=== PATIENT | male | born 1950 | race Caucasian/White ===

== ENCOUNTER 2020-08-16 18:39 | Inpatient (IN) | payer MEDICARE, OTHER ==
[~2020-08-16] VITALS: Ht 182.9 cm; Wt 122.5 kg
--- NOTE | 2020-08-16 19:35 | NUR ---
CALLED NURSING SUP FOR BED
--- NOTE | 2020-08-16 19:35 | NUR ---
[facility]I APA unit 200 from "[facility] for Shoulder pain/more altered than usual. On O2 At 2l/nc on arrival". PT AAOX2, RR EVEN & UNLABORED. DENIES CP, SOB, DIZZINESS, N/V AT THIS TIME. PLACED HAND MOLD MAKER. SR. PT SEEN & EVAL'D BY DR. WHITAKER. WILL CONT TO MONITOR.
--- NOTE | 2020-08-16 19:38 | NUR ---
PT TO CT VIA [facility].
[2020-08-16 19:49] LABS: BASOPHILS % (AUTO) 0.7 % (0.0-2.0); EOSINOPHILS % (AUTO) 4.8 % (0.0-6.0); HEMATOCRIT 34 % (39-51); HEMOGLOBIN 11.6 g/dL (13.5-17.5); LYMPHOCYTES % (AUTO) 30.2 % (20.0-44.0); MEAN CORPUSCULAR HGB CONC 34 g/dl (31.0-36.0); MEAN CORPUSCULAR VOLUME 106 fL (80-96); MONOCYTES # (AUTO) 0.8 /CMM (0.1-1.30); MONOCYTES % (AUTO) 11.9 % (2.0-12.0); NEUTROPHILS # (AUTO) 3.5 /CMM (1.8-8.9); NEUTROPHILS % (AUTO) 52.4 % (43.0-81.0); PLATELET COUNT (AUTO) 103 /CMM (150-450); WHITE BLOOD COUNT (AUTO) 6.6 K/uL (4.3-11.0)
--- NOTE | 2020-08-16 19:50 | NUR ---
PT BACK FROM CT. PT ABLE TO DRINK JUICE WITHOUT DIFFICULTY. NAD NOTED AT THIS TIME. WILL CONT TO MONITOR.
--- NOTE | 2020-08-16 20:04 | NUR ---
TELE 207
[2020-08-16] MEDS ORDERED: ASPI-1169 PO (20:06)
[2020-08-16] MEDS ORDERED: CRAN3875 PO (20:06)
[2020-08-16] MEDS ORDERED: LACT10SO PO (20:06)
[2020-08-16] MEDS ORDERED: LEVO25TA7 PO (20:06)
[2020-08-16] MEDS ORDERED: ACET325C7 PO (20:06)
[2020-08-16] MEDS ORDERED: FERR325T23 PO (20:06)
[2020-08-16] MEDS ORDERED: MEMA1CAP PO (20:06)
[2020-08-16] MEDS ORDERED: CALC-343 PO (20:06)
[2020-08-16] MEDS ORDERED: DONE5TAB7 PO (20:06)
[2020-08-16] MEDS ORDERED: AMIN887L PO (20:06)
[2020-08-16] MEDS ORDERED: PARO10TA86 PO (20:06)
[2020-08-16] MEDS ORDERED: CRAN425C6 PO (20:06)
[2020-08-16] MEDS ORDERED: ACET-2605 PO (20:06)
[2020-08-16] MEDS ORDERED: QUET25TA PO (20:06)
[2020-08-16] MEDS ORDERED: LATA2.5D2 OP (20:06)
[2020-08-16] MEDS ORDERED: METO25TA3 PO (20:06)
[2020-08-16 20:18] LABS: ALANINE AMINOTRANSFERASE 30 U/L (12-78); ALCOHOL, BLOOD < 3 mg/dL (0-0); ALKALINE PHOSPHATASE 205 U/L (46-116); ASPARTATE AMINOTRANSFERASE 43 U/L (15-37); BILIRUBIN,DIRECT 0.3 mg/dL (0.0-0.2); BILIRUBIN,TOTAL 0.8 mg/dL (0.2-1.0); CALCIUM, SERUM 8.1 mg/dL (8.5-10.1); CARBON DIOXIDE 29 mmol/L (21-32); CHLORIDE 109 mmol/L (98-107); CREATININE 1.1 mg/dL (0.6-1.3); GLUCOSE 80 mg/dL (74-106); POTASSIUM 4.8 mmol/L (3.5-5.1); SODIUM SERUM 142 mmol/L (136-145); TOTAL PROTEIN, SERUM 7.6 g/dL (6.4-8.2); UREA NITROGEN, BLOOD 19 mg/dL (7-18)
--- NOTE | 2020-08-16 20:38 | NUR ---
DR. WHITAKER SPEAKING WITH DR. SCHAFFER
--- NOTE | 2020-08-16 20:49 | NUR ---
REPORT GIVEN TO FABIOLA SMITH FOR GWEN.
[2020-08-16 21:01] LABS: SERUM AMMONIA 121 umol/L (11-32)
[2020-08-16 21:05] VITALS: BP 147/70
--- NOTE | 2020-08-16 21:47 | NUR ---
MS2/RN RECEIVED PATIENT FROM E.R. BY WEST AT AROUND 2105. PATIENT WAS AWAKE, ALERT, ORIENTED TO PERSON ONLY, UNABLE TO STATE PLACE AND DATE, HE WAS COMFORTABLE, NO C/O PAIN, NO DISTRESS NOTED, AFEBRILE. UNABLE TO OBTAIN ADMISSION INFORMATIONS PATIENT IS A POOR HISTORIAN, INFORMATIONS WERE OBTAINED FROM E.R. NOTES. MADE PATIENT COMFORTABLE IN BED, TAUGHT THE USE OF CALL LIGHT AND PLACED IT AT BEDSIDE WITHIN REACH, FALL PRECAUTIONS PER PROTOCOL IMPLEMENTED, BED ALARM ACTIVATED FOR SAFETY, SENT MESSAGE TO DR. SCHAFFER FOR ADMISSION ORDERS. WILL MONITOR PATIENT.
[2020-08-16] MEDS ORDERED: Z GUARD REMEDY 2 OZ OINT TP PRN (22:00)
[2020-08-16] MEDS: LATANOPROST EYE DROP 0.005% 2.5 ML BOTTLE OP SCH (22:00)
[2020-08-16] MEDS ORDERED: DONEPEZIL 5 MG TABLET PO SCH (22:00)
[2020-08-16] MEDS ORDERED: ONDANSETRON HCL/PF 4 MG/2 ML VIAL IVP PRN (22:00)
[2020-08-16] MEDS ORDERED: ACETAMINOPHEN 325 MG TABLET PO PRN (22:00)
[2020-08-16] MEDS ORDERED: MAG HYDROX/AL HYDROX/SIMETH 30 ML UDC PO PRN (22:00)
[2020-08-16] MEDS ORDERED: MAGNESIUM HYDROXIDE 30 ML UDC PO PRN (22:00)
[2020-08-17 00:07] VITALS: BP 150/80
--- NOTE | 2020-08-17 02:57 | NUR ---
MS2/RN CALLED [facility], , SPOKE TO FABIOLA [facility]. PER MANOLO, PATIENT RECEIVED FLU VACCINE ON 07/28/2020, NO RECORDS ABOUT PNA VACCINE, PATIENT ABLE TO SWALLOW WHOLE MEDS, ELECTRIC NEEDLE SPECIALIST IS MATILDA CONNOLLY, DAUGHTER, .
--- NOTE | 2020-08-17 03:07 | NUR ---
MS2/RN PATIENT IS SLEEPING AT THIS TIME, APPEAR COMFORTABLE, NO SIGNS OF DISTRESS NOTED, CALL LIGHT IN REACH, WILL CONTINUE TO MONITOR.
[2020-08-17] MEDS: IV D5/0.45 NACL 1,000 ML IV PRN ×2 (04:35→15:49)
--- NOTE | 2020-08-17 04:37 | NUR ---
MS2/RN LATANOPROST EYE DROP NOT ADMINISTERED AT 2200 DUE TO LATE VERIFICATION BY THE PHARMACY/
[2020-08-17 04:49] VITALS: BP 122/62
--- NOTE | 2020-08-17 05:54 | NUR ---
MS2/RN ON ADMISSION, PATIENT REFUSED SKIN ASSESSMENT. PATIENT AGREED TO SKIN ASSESSMENT AT THIS TIME, SKIN INTACT, BLE SKIN DISCOLORATIONS NOTED, PHOTOS TAKEN.
--- NOTE | 2020-08-17 05:56 | NUR ---
MS2/RN PATIENT IS AWAKE, AND ALERT, NO CHANGE IN CONDITION, NO DISTRESS NOTED, CALL LIGHT IN REACH, ALL NEEDS ATTENDED AT THIS TIME, WILL CONTINUE TO MONITOR.
--- NOTE | 2020-08-17 07:20 | NUR ---
SOUR BLEACHING PLEATER OPENING NOTES RECEIVED PATIENT IN BED, ASLEEP. PATIENT IN BREATHING ON ROOM AIR; BREATHING IS EVEN AND UNLABORED; NO SOB NOTED AT THIS TIME. NO S/S OF PAIN SUCH MOANING, FACIAL GRIMACING OR GUARDING. CURRENT MONITOR READING OF SINUS RHYTHM 75 BPM. RAC IV ACCESS G # 18 PRESENT AND INTACT. SAFETY PRECAUTIONS IN PLACE; BED IN LOW POSITION AND LOCKED, RAILS UP X2, CALL LIGHT WITHIN REACH. WILL CONTINUE TO MONITOR PATIENT.
[2020-08-17 08:00] VITALS: BP 140/71
[2020-08-17] MEDS: LEVOTHYROXINE SODIUM 25 MCG TABLET PO SCH (08:35)
[2020-08-17] MEDS: MEMANTINE HCL 5 MG TABLET PO SCH ×2 (08:35→16:04)
[2020-08-17] MEDS: FERROUS SULFATE (325 MG) 325 MG/TAB TABLET PO SCH ×2 (08:35→16:04)
[2020-08-17] MEDS: ASPIRIN 81 MG TAB.CHEW PO SCH (08:35)
[2020-08-17 12:00] VITALS: BP 117/68
--- NOTE | 2020-08-17 14:33 | NUR ---
PRODUCTION LINE MANAGER NOTES DVT PUMPS BROUGHT BY CENTRAL SUPPLY. PATIENT REFUSED TO APPLY THEM ON. WILL TRY LATER.
[2020-08-17] MEDS: LACTULOSE 10 G/15 ML UDC (PYXIS) PO PRN (15:56)
[2020-08-17 15:59] LABS: BASOPHILS % (AUTO) 0.4 % (0.0-2.0); HEMATOCRIT 33 % (39-51); HEMOGLOBIN 11.2 g/dL (13.5-17.5); LYMPHOCYTES # (AUTO) 1.6 /CMM (0.8-4.8); LYMPHOCYTES % (AUTO) 28.3 % (20.0-44.0); MEAN CORPUSCULAR HGB CONC 34 g/dl (31.0-36.0); MEAN CORPUSCULAR VOLUME 105 fL (80-96); MONOCYTES # (AUTO) 0.7 /CMM (0.1-1.30); MONOCYTES % (AUTO) 12.2 % (2.0-12.0); NEUTROPHILS # (AUTO) 3.1 /CMM (1.8-8.9); NEUTROPHILS % (AUTO) 55.1 % (43.0-81.0); PLATELET COUNT (AUTO) 96 /CMM (150-450); RED BLOOD CELL COUNT(AUTO) 3.11 MIL/uL (4.5-6.0); WHITE BLOOD COUNT (AUTO) 5.6 K/uL (4.3-11.0)
[2020-08-17 16:00] VITALS: BP 124/61
[2020-08-17 16:54] LABS: ALBUMIN 1.9 g/dL (3.4-5.0); BILIRUBIN,DIRECT 0.3 mg/dL (0.0-0.2); BILIRUBIN,TOTAL 0.8 mg/dL (0.2-1.0); CALCIUM, SERUM 8.1 mg/dL (8.5-10.1); CREATININE 0.9 mg/dL (0.6-1.3); POTASSIUM 4.4 mmol/L (3.5-5.1); TOTAL PROTEIN, SERUM 7.5 g/dL (6.4-8.2)
[2020-08-17 17:00] LABS: THYROID STIMULATING HORMONE 3.437 uIU/mL (0.358-3.74)
--- NOTE | 2020-08-17 18:42 | NUR ---
TOP FORMER CLOSING NOTES PATIENT REMAINS IN BED, AWAKE, A/O X3. PATIENT IS ON OXYGEN THERAPY VIA NASAL CANULA AT 2LPM; BREATHING IS EVEN AND UNLABORED; NO SOB NOTED DURING THE SHIFT. NO COMPLAINS OF PAIN. CURRENT MONITOR READING OF SINUS RHYTHM. RAC IV ACCESS G # 18 PRESENT AND INTACT. DVT PUMPS ON. ALL NEEDS ATTENDED TO THROUGHOUT THE DAY. SAFETY PRECAUTIONS IN PLACE; BED IN LOW POSITION AND LOCKED, RAILS UP X2, CALL LIGHT WITHIN REACH. WILL ENDORSE TO FEDERAL DISTRICT CLERK NURSE. Addendum: 08/17/20 at 1847 by JOAQUINA CLEMONS RN WRONG PATIENT NOTE
--- NOTE | 2020-08-17 18:47 | NUR ---
INTERVENTIONAL RADIOLOGY TECH CLOSING NOTES PATIENT IN BED, AWAKE, A/O X1. PATIENT IS BREATHING ON ROOM AIR; BREATHING IS EVEN AND UNLABORED; NO SOB NOTED DURING THE SHIFT. NO COMPLAINS OF PAIN. CURRENT MONITOR READING OF SINUS RHYTHM 80 BPM. RAC IV ACCESS G # 18 PRESENT AND INTACT RUNNING D5 1/2 NS AT 75MLS/HR. ALL NEEDS ATTENDED TO THROUGHOUT THE DAY. SAFETY PRECAUTIONS IN PLACE; BED IN LOW POSITION AND LOCKED, RAILS UP X2, CALL LIGHT WITHIN REACH. WILL ENDORSE TO STRAIGHT TOOTH GEAR GENERATOR OPERATOR NURSE.
--- NOTE | 2020-08-17 19:30 | NUR ---
PAINT ROLLER ASSEMBLER NOTE: PATIENT RESTING IN BED, NO ACUTE DISTRESS NOTED. BREATHING EVEN AND UNLABORED, NO SOB NOTED. IV TO RAC IN PLACE, INFUSING D5 1/2 NS AT 75ML/HR. TELE READING SR 78. ISOLATION PRECAUTIONS OBSERVED. BED LOCKED AND IN LOWEST POSITION, CALL LIGHT IN REACH. WILL CONTINUE TO MONITOR.
[2020-08-17 20:00] VITALS: BP 133/79
[2020-08-17 20:22] LABS: EOSINOPHILS % (MANUAL) 3 % (0-4); LYMPHOCYTES % (MANUAL) 24 % (16-48); MONOCYTES % (MANUAL) 3 % (0-11.0); NEUTROPHILS % (MANUAL) 70 (42-76)
[2020-08-17] MEDS: LATANOPROST EYE DROP 0.005% 2.5 ML BOTTLE OP SCH (22:00)
[2020-08-18] VITALS: BP 121/60
--- NOTE | 2020-08-18 03:00 | NUR ---
WOODWORKING CRAFTSMAN NOTE: PATIENT SLEEPING IN BED, NO ACUTE DISTRESS NOTED. BREATHING EVEN AND UNLABORED, NO SOB NOTED. IV TO RAC IN PLACE, INFUSING D5 1/2 NS AT 75ML/HR. ISOLATION PRECAUTIONS OBSERVED. BED LOCKED AND IN LOWEST POSITION, CALL LIGHT IN REACH. WILL CONTINUE TO MONITOR.
[2020-08-18 04:00] VITALS: BP 137/69
--- NOTE | 2020-08-18 06:35 | NUR ---
MACHINE APPLICATOR CEMENTER NOTE: PATIENT RESTING IN BED, NO ACUTE DISTRESS NOTED. BREATHING EVEN AND UNLABORED, NO SOB NOTED. IV TO RAC IN PLACE, INFUSING D5 1/2 NS AT 75ML/HR. ISOLATION PRECAUTIONS OBSERVED. BED LOCKED AND IN LOWEST POSITION, CALL LIGHT IN REACH. WILL ENDORSE TO DAY NURSE TO CONTINUE WITH PLAN OF CARE.
--- NOTE | 2020-08-18 07:15 | NUR ---
Patient is awake, alert and oriented x1. Breathing unlabored and even on room air , no distress noted. IV fluid is runing as ordered. Safety precautions in place, call light within reach.Will continue to monitor
[2020-08-18 08:00] VITALS: BP 149/68
[2020-08-18] MEDS: MEMANTINE HCL 5 MG TABLET PO SCH ×2 (08:10→17:15)
[2020-08-18] MEDS: FOLIC ACID 1 MG TABLET PO SCH (08:10)
[2020-08-18] MEDS: LEVOTHYROXINE SODIUM 25 MCG TABLET PO SCH (08:10)
[2020-08-18] MEDS: MULTIVITAMINS,THERAGRAN 1 UDTAB TABLET PO SCH (08:10)
[2020-08-18] MEDS: ASPIRIN 81 MG TAB.CHEW PO SCH (08:11)
[2020-08-18] MEDS: THIAMINE HCL 100 MG TABLET PO SCH (08:11)
[2020-08-18] MEDS: FERROUS SULFATE (325 MG) 325 MG/TAB TABLET PO SCH ×2 (08:11→17:15)
[2020-08-18 08:22] LABS: CALCIUM, SERUM 7.9 mg/dL (8.5-10.1); CREATININE 0.8 mg/dL (0.6-1.3); POTASSIUM 4.3 mmol/L (3.5-5.1)
[2020-08-18] MEDS: IV D5/0.45 NACL 1,000 ML IV PRN (08:36)
[2020-08-18] MEDS: LACTULOSE 10 G/15 ML UDC (PYXIS) PO PRN ×2 (09:06→17:15)
[2020-08-18 16:00] VITALS: BP 160/85
--- NOTE | 2020-08-18 18:50 | NUR ---
Patient is awake, alert and oriented x1. Breathing unlabored and even on room air , no distress noted at this time. Patient denies pain at this time. Lactulose administrated as ordered Q6hr. IV fluid D/C. IV line intact and patent HL. Safety precautions in place, call light within reach.Will endorse to next shift for GWEN
--- NOTE | 2020-08-18 19:40 | NUR ---
TRACK SUBWAY REPAIR SUPERVISOR OPENING NOTES RECEIVED PATIENT IN BED ALERT AND ORIENTED X 1-2 WITH EPISODES OF CONFUSION. VERBALLY RESPONSIVE AND ABLE TO FOLLOW DIRECTIONS. BREATHING REGULAR AND UNLABORED ON ROOM AIR. RIGHT AC G18 IV LINE INTACT AND PATENT, FLUSHING WELL WITH NO BLEEDING OR S/S OF INFILTRATION NOTED. ON CARDIAC MONITORING WITH NSR AT 65bpm. DENIES SUICIDAL IDEATION OR PAIN/DISCOMFORT AT THIS TIME. BED LOW AND LOCKED ON SEMI FOWLERS POSITION. CALL LIGHT IN REACH. WILL CONTINUE TO MONITOR.
[2020-08-18 20:00] VITALS: BP 150/58
[2020-08-18] MEDS: LATANOPROST EYE DROP 0.005% 2.5 ML BOTTLE OP SCH (21:49)
[2020-08-19] VITALS: BP 125/65
[2020-08-19 04:00] VITALS: BP 119/61
[2020-08-19] MEDS: LACTULOSE 10 G/15 ML UDC (PYXIS) PO PRN ×2 (05:24→16:31)
[2020-08-19] MEDS: LEVOTHYROXINE SODIUM 25 MCG TABLET PO SCH (06:24)
--- NOTE | 2020-08-19 06:50 | NUR ---
BIOMASS PLANT MANAGER CLOSING NOTES PATIENT IN BED ALERT AND ORIENTED X 1-2 WITH EPISODES OF CONFUSION. AFEBRILE WITH NO S/S OF DISTRESS OBSERVED. RIGHT AC G18 IV LINE PATENT AND FLUSHING WELL. MAINTAINED ON CARDIAC MONITORING WITH NSR AT 68bpm. NO COMPLAINTS OF PAIN/DISCOMFORT REPORTED AT THIS TIME. BED LOW AND LOCKED ON SEMI FOWLERS POSITION. CALL LIGHT IN REACH. WILL ENDORSE TO MORNING SHIFT FOR GWEN.
[2020-08-19 06:51] LABS: CALCIUM, SERUM 7.8 mg/dL (8.5-10.1); CREATININE 0.8 mg/dL (0.6-1.3); POTASSIUM 4.2 mmol/L (3.5-5.1)
--- NOTE | 2020-08-19 07:30 | NUR ---
VOLCANOLOGY TEACHER NOTES PT IN BED, ASLEEP, EASY TO AROUSE, ALERT AND VERBALLY RESPONSIVE, DENIES PAIN, RESPIRATIONS NORMAL, CALL LIGHT WITHIN REACH, KEPT WARM AND COMFORTABLE IN BED.
[2020-08-19 08:00] VITALS: BP 116/77
[2020-08-19] MEDS: FERROUS SULFATE (325 MG) 325 MG/TAB TABLET PO SCH ×2 (08:13→16:31)
[2020-08-19] MEDS: FOLIC ACID 1 MG TABLET PO SCH (08:13)
[2020-08-19] MEDS: THIAMINE HCL 100 MG TABLET PO SCH (08:13)
[2020-08-19] MEDS: MEMANTINE HCL 5 MG TABLET PO SCH ×2 (08:13→16:31)
[2020-08-19] MEDS: MULTIVITAMINS,THERAGRAN 1 UDTAB TABLET PO SCH (08:13)
[2020-08-19] MEDS: ASPIRIN 81 MG TAB.CHEW PO SCH (08:14)
--- NOTE | 2020-08-19 13:00 | NUR ---
SUPERVISOR CUSTOMER SERVICES NOTES PT IN BED, AWAKE, ALERT AND VERBALLY RESPONSIVE, NO COMPLAINT AT THIS TIME, SEEN AND EXAMINED BY DR. ROSS, PLAN OF CARE DISCUSSED WITH PT, VERBALIZED UNDERSTANDING, CALL LIGHT WITHIN REACH, KEPT PT COMFORTABLE.
[2020-08-19 16:00] VITALS: BP 145/71
--- NOTE | 2020-08-19 18:14 | NUR ---
MENTAL HEALTH PROFESSIONAL NOTES PT IN BED, RESTING, AWAKE, ALERT AND ORIENTED, NO COMPLAINT OF PAIN OR ANY DISCOMFORT, NOT IN DISTRESS, ASSISTED WITH MEALS, PM MEDS GIVEN, PM CARE PROVIDED, ALL NEEDS ATTENDED.
--- NOTE | 2020-08-19 19:25 | NUR ---
FRAME HAND OPEN NOTES PATIENT IS WATCHING TV IN BED. A/O X2-3. ON RA, NO SOB/ ACUTE RESPIRATORY DISTRESS NOTED. PT DENIES ANY PAIN AT THE MOMENT. IV IN R AC #18G IS PATENT AND INTACT. BED IS IN LOWEST LOCKED POSITION WITH SIDE RAILS UP X3, SEMI FOWLERS. CALL LIGHT IS WITHIN REACH. WILL CONTINUE TO MONITOR.
[2020-08-19 20:23] VITALS: BP 140/83
[2020-08-19] MEDS: LATANOPROST EYE DROP 0.005% 2.5 ML BOTTLE OP SCH (22:11)
[2020-08-20 00:24] VITALS: BP 107/54
[2020-08-20 04:00] VITALS: BP 128/74
[2020-08-20] MEDS: LEVOTHYROXINE SODIUM 25 MCG TABLET PO SCH (06:06)
--- NOTE | 2020-08-20 06:20 | NUR ---
CEMENT MASON CLOSE NOTES PATIENT IS LAYING IN BED, WATCHING TV. A/O X3. ON RA, SATURATING > 95%, NO SOB/ ACUTE RESPIRATORY DISTRESS NOTED. IV IN R AC #18G IS PATENT AND INTACT. PATIENT DENIES ANY PAIN AT THE MOMENT. BED IS IN LOWEST LOCKED POSITION WITH SIDE RAILS UP X3, SEMI FOWLERS. CALL LIGHT IS WITHIN REACH. WILL ENDORSE TO AM NURSE.
--- NOTE | 2020-08-20 07:20 | NUR ---
DEVIN RN NOTES RECEIVED PATIENT IN BED ALERT AND ORIENTED X3, WATCHING TV. HOB ELEVATED. NO SOB. ON ROOM AIR WITH SPO2 OF 100%. ON TELE MONITORING SR. DENIES ANY C/O PAIN NOR DISCOMFORT. BED IN LOWEST POSITION, LOCKED. BED ALARM ON. ABLE TO VERBALIZE NEEDS. CALL LIGHT WITHIN REACH.
--- NOTE | 2020-08-20 07:30 | NUR ---
PARTS MANAGER NOTES RECEIVED PATIENT IN BED ALERT AND ORIENTED X3. HOB ELEVATED. NO S/S OF RESPIRATORY DISTRESS. ON ROOM AIR WITH SPO2 OF 97%. ON TELE MONITORING SR. LEFT UPPER ARM AV SHUNT WITH GOOD BRUIT/THRILL. DENIES ANY C/O PAIN NOR DISCOMFORT. BED IN LOWEST POSITION, LOCKED. BED ALARM ON. ABLE TO VERBALIZE NEEDS. CALL LIGHT WITHIN REACH. Addendum: 08/20/20 at 2021 by NIMCO HERNÁNDEZ RN WRONG DOCUMENTATION.
--- NOTE | 2020-08-20 07:37 | NUR ---
LEAF STRIPPER NOTES RECEIVED N.O. FROM DR. ROSS TO CHANGE LACTULOSE TO FOUR TIMES A DAY
[2020-08-20 08:00] VITALS: BP 136/74
[2020-08-20] MEDS ORDERED: LACTULOSE 10 G/15 ML UDC (PYXIS) PO PRN (08:00)
[2020-08-20] MEDS: THIAMINE HCL 100 MG TABLET PO SCH (08:07)
[2020-08-20] MEDS: FERROUS SULFATE (325 MG) 325 MG/TAB TABLET PO SCH ×2 (08:07→17:00)
[2020-08-20] MEDS: LACTULOSE 10 G/15 ML UDC (PYXIS) PO SCH ×4 (08:07→22:37)
[2020-08-20] MEDS: MEMANTINE HCL 5 MG TABLET PO SCH ×2 (08:07→16:59)
[2020-08-20] MEDS: ASPIRIN 81 MG TAB.CHEW PO SCH (08:07)
[2020-08-20] MEDS: MULTIVITAMINS,THERAGRAN 1 UDTAB TABLET PO SCH (08:07)
[2020-08-20] MEDS: FOLIC ACID 1 MG TABLET PO SCH (08:07)
[2020-08-20 11:00] LABS: CALCIUM, SERUM 8.3 mg/dL (8.5-10.1); CREATININE 0.9 mg/dL (0.6-1.3); POTASSIUM 4.2 mmol/L (3.5-5.1)
[2020-08-20 13:48] VITALS: BP 160/55
[2020-08-20 16:00] VITALS: BP 145/71
--- NOTE | 2020-08-20 19:00 | NUR ---
CORPORATE BANKING OFFICER NOTES PATIENT RESTING COMFORTABLY IN BED. HOB ELEVATED. NO S/S OF RESPIRATORY DISTRESS. DENIES ANY C/O PAIN NOR DISCOMFORT. LOC REMAINS AT BASELINE SINCE THIS MORNING. BED IN LOWEST POSITION, LOCKED. BED ALARM ON. ABLE TO VERBALIZE NEEDS. CALL LIGHT WITHIN REACH. IN NO APPARENT DISTRESS.
[2020-08-20] MEDS: LATANOPROST EYE DROP 0.005% 2.5 ML BOTTLE OP SCH (22:37)
[2020-08-20 22:53] VITALS: BP 130/56
[2020-08-21 04:00] VITALS: BP 131/64
[2020-08-21 04:15] VITALS: BP 131/64
--- NOTE | 2020-08-21 04:16 | NUR ---
SLEPT THRU THE NIGHT. SNORING LOUDLY. LARGE BM THIS 12 HOHURS INCONTINENT US AND STOOL. SCDS ON THRU PART OF THE NIGHT VERBALIZES HIS NEEDS CALL LIGHT WITHIN REACH BED ALARM ON NO C/O PAIN OR DISCOMFORT THIS 12 HOURS
[2020-08-21] MEDS: LEVOTHYROXINE SODIUM 25 MCG TABLET PO SCH (06:20)
--- NOTE | 2020-08-21 07:30 | NUR ---
TELE/RN OPENING NOTES Received patient resting in bed, A&O x 2. No complaints of pain and discomfort at this time. Breathing even and non-labored on RA, no SOB noted. No cardiac distress noted. On tele monitor, reading SB 55. IV access noted on R AC #18, patent and intact, and flushing well. Sensation from all peripheral extremities intact. Bed locked to its lowest position, bed alarm on, side rails x 2 up, call light in hand. Instructed patient to use call light when in need of any assistance. Will continue current medical management.
[2020-08-21 07:31] LABS: CALCIUM, SERUM 8.2 mg/dL (8.5-10.1); CREATININE 0.8 mg/dL (0.6-1.3); POTASSIUM 4.3 mmol/L (3.5-5.1)
[2020-08-21 08:09] VITALS: BP 108/55
[2020-08-21] MEDS: ASPIRIN 81 MG TAB.CHEW PO SCH (08:11)
[2020-08-21] MEDS: LACTULOSE 10 G/15 ML UDC (PYXIS) PO SCH ×4 (08:12→21:56)
[2020-08-21] MEDS: THIAMINE HCL 100 MG TABLET PO SCH (08:12)
[2020-08-21] MEDS: FOLIC ACID 1 MG TABLET PO SCH (08:12)
[2020-08-21] MEDS: MEMANTINE HCL 5 MG TABLET PO SCH ×2 (08:12→16:27)
[2020-08-21] MEDS: MULTIVITAMINS,THERAGRAN 1 UDTAB TABLET PO SCH (08:12)
[2020-08-21] MEDS: FERROUS SULFATE (325 MG) 325 MG/TAB TABLET PO SCH ×2 (08:12→16:28)
[2020-08-21] MEDS: RIFAXIMIN 550 MG TABLET PO SCH ×2 (13:33→16:27)
[2020-08-21 16:05] VITALS: BP 147/62
--- NOTE | 2020-08-21 18:33 | NUR ---
MS/RN CLOSING NOTES Patient resting in bed, A&O x 2. All needs are met and attended to. VSS, afebrile, no SOB noted. Denies any pain/discomfort at this time. Breathing even and non-labored on RA, no SOB noted. No cardiac distress noted. IV access remained patent and intact, and flushing well. Sensation from all peripheral extremities intact. Fall precautions maintained. Will endorse to transit man nurse.
--- NOTE | 2020-08-21 20:32 | NUR ---
MS/TELE/RN DURING INITIAL ASSESSMENT AT 1930, PATIENT WAS AWAKE, ALERT, ORIENTED TO PERSON ONLY, UNABLE TO STATE THE PLACE AND TIME. REORIENTED THE PATIENT. NO DISTRESS NOTED, CALL LIGHT IN REACH, FALL PRECAUTIONS PER PROTOCOL, WILL MONITOR.
[2020-08-21 20:40] VITALS: BP 128/72
[2020-08-21] MEDS: LATANOPROST EYE DROP 0.005% 2.5 ML BOTTLE OP SCH (22:00)
--- NOTE | 2020-08-22 00:20 | NUR ---
MS/TELE/RN PATIENT IS SLEEPING AT THIS TIME, APPEAR COMFORTABLE, BREATHING EVEN AND UNLABORED, CALL LIGHT IN REACH. WILL CONTINUE TO MONITOR.
[2020-08-22] MEDS: LEVOTHYROXINE SODIUM 25 MCG TABLET PO SCH (06:43)
--- NOTE | 2020-08-22 06:51 | NUR ---
MS/TELE/RN PATIENT IS SLEEPING AROUSES EASILY, APPEAR COMFORTABLE, NO DISTRESS NOTED, ALL NEEDS ATTENDED AT THIS TIME, WILL CONTINUE TO MONITOR.
--- NOTE | 2020-08-22 07:30 | NUR ---
MS/RN OPENING NOTES Received patient resting comfortably in bed, A&O x 2. Denies any pain and discomfort at this time. Breathing even and non-labored on RA. No respiratory or cardiac distress noted. IV access noted on R AC #18, patent and intact, and flushing well. Sensation from all peripheral extremities intact. Bed locked to its lowest position, bed alarm on, side rails x 2 up, call light in hand. Instructed patient to use call light when in need of any assistance. Will continue current medical management.
[2020-08-22] MEDS: RIFAXIMIN 550 MG TABLET PO SCH ×2 (08:17→16:06)
[2020-08-22] MEDS: ASPIRIN 81 MG TAB.CHEW PO SCH (08:17)
[2020-08-22] MEDS: LACTULOSE 10 G/15 ML UDC (PYXIS) PO SCH ×4 (08:17→21:31)
[2020-08-22] MEDS: FOLIC ACID 1 MG TABLET PO SCH (08:17)
[2020-08-22] MEDS: MULTIVITAMINS,THERAGRAN 1 UDTAB TABLET PO SCH (08:17)
[2020-08-22] MEDS: FERROUS SULFATE (325 MG) 325 MG/TAB TABLET PO SCH ×2 (08:17→16:06)
[2020-08-22] MEDS: MEMANTINE HCL 5 MG TABLET PO SCH ×2 (08:17→16:06)
[2020-08-22] MEDS: THIAMINE HCL 100 MG TABLET PO SCH (08:18)
[2020-08-22 09:16] VITALS: BP 145/59
--- NOTE | 2020-08-22 12:17 | NUR ---
MS/RN NOTE Dr. Salinas at bedside, notified Ammonia level still at 117, ordered Lactulose 30 G 4x a day. Orders carried out.
[2020-08-22] MEDS ORDERED: LACTULOSE 10 G/15 ML UDC (PYXIS) PO SCH (13:00)
--- NOTE | 2020-08-22 14:23 | NUR ---
MS/RN NOTE [facility], patient had his pneumococcal vaccine on 04/03/2017 and flu vaccine on 08/10/2020. Noted on interventions.
[2020-08-22 16:09] VITALS: BP 137/62
[2020-08-22 19:00] VITALS: BP 147/74
--- NOTE | 2020-08-22 19:18 | NUR ---
MS/RN CLOSING NOTES Patient resting in bed, A&O x 2. All needs are met and attended to. VSS, afebrile. No complaints of any pain/discomfort at this time. Breathing even and non-labored on RA. No respiratory or cardiac distress noted. IV access on R AC #18 remained patent and intact, and flushing well. Sensation from all peripheral extremities intact. Fall precautions maintained. Will endorse to shift superintendent nurse.
--- NOTE | 2020-08-22 19:57 | NUR ---
MS/TELE/RN RECEIVED PATIENT AWAKE, ALERT, ORIENTED, COMFORTABLE, NO C/O PAIN, NO DISTRESS NOTED, FALL PRECAUTIONS PER PROTOCOL, CALL LIGHT IN REACH, WILL MONITOR.
[2020-08-22] MEDS: LATANOPROST EYE DROP 0.005% 2.5 ML BOTTLE OP SCH (21:31)
[2020-08-23 06:23] LABS: BASOPHILS % (AUTO) 0.8 % (0.0-2.0); EOSINOPHILS % (AUTO) 5.9 % (0.0-6.0); HEMATOCRIT 31 % (39-51); HEMOGLOBIN 10.4 g/dL (13.5-17.5); LYMPHOCYTES # (AUTO) 1.5 /CMM (0.8-4.8); LYMPHOCYTES % (AUTO) 26.4 % (20.0-44.0); MEAN CORPUSCULAR HGB CONC 34 g/dl (31.0-36.0); MEAN CORPUSCULAR VOLUME 105 fL (80-96); MONOCYTES # (AUTO) 0.7 /CMM (0.1-1.30); MONOCYTES % (AUTO) 12.1 % (2.0-12.0); NEUTROPHILS # (AUTO) 3.1 /CMM (1.8-8.9); NEUTROPHILS % (AUTO) 54.8 % (43.0-81.0); PLATELET COUNT (AUTO) 86 /CMM (150-450); WHITE BLOOD COUNT (AUTO) 5.7 K/uL (4.3-11.0)
[2020-08-23] MEDS: LEVOTHYROXINE SODIUM 25 MCG TABLET PO SCH (06:27)
--- NOTE | 2020-08-23 06:34 | NUR ---
MS/TELE/RN PATIENT IS AWAKE AT THIS TIME, ALERT, COMFORTABLE, NO C/O PAIN, NO DISTRESS NOTED, SLEPT WELL DURING THE SHIFT, ALL NEEDS ATTENDED AT THIS TIME, WILL CONTINUE TO MONITOR.
[2020-08-23 06:45] LABS: CALCIUM, SERUM 8.3 mg/dL (8.5-10.1); CREATININE 0.9 mg/dL (0.6-1.3); MAGNESIUM 1.7 mg/dL (1.8-2.4); PHOSPHORUS 3.4 mg/dL (2.5-4.9); POTASSIUM 4.2 mmol/L (3.5-5.1)
[2020-08-23] MEDS: ASPIRIN 81 MG TAB.CHEW PO SCH (08:41)
[2020-08-23] MEDS: FOLIC ACID 1 MG TABLET PO SCH (08:43)
[2020-08-23] MEDS: MULTIVITAMINS,THERAGRAN 1 UDTAB TABLET PO SCH (08:43)
[2020-08-23] MEDS: LACTULOSE 10 G/15 ML UDC (PYXIS) PO SCH ×2 (08:43→12:51)
[2020-08-23] MEDS: THIAMINE HCL 100 MG TABLET PO SCH (08:43)
[2020-08-23] MEDS: MEMANTINE HCL 5 MG TABLET PO SCH (08:43)
[2020-08-23] MEDS: FERROUS SULFATE (325 MG) 325 MG/TAB TABLET PO SCH (08:43)
[2020-08-23] MEDS: RIFAXIMIN 550 MG TABLET PO SCH (08:44)
[2020-08-23 08:48] LABS: EOSINOPHILS % (MANUAL) 4 % (0-4); LYMPHOCYTES % (MANUAL) 22 % (16-48); MONOCYTES % (MANUAL) 6 % (0-11.0); NEUTROPHILS % (MANUAL) 68 (42-76)
[2020-08-23] MEDS: Magnesium 1GM/D5W 100ML PREMIX 100 ML IV SCH ×2 (09:32→12:49)
--- NOTE | 2020-08-23 10:11 | NUR ---
19:30 Report received from night nurse. Patient alert, awake, and oriented x 2. Patient with no s/s of distress or discomfort, no SOB, no c/o pain. VS WNL. Patient received due medications as ordered, tolerated well. HOB elevated as tolerated for aspiration precautions. Fall precautions observed. Patient reminded to use call light for assistance. Assisted with ADLs and turning and repositioning as needed and tolerated. Needs anticipated and attended. Call light within reach. Addendum: 08/23/20 at 1532 by JAMAAL AGUIRRE RN (Correction) 07:30 am Opening notes Report received from night nurse. Patient alert, awake, and oriented x 2. Patient with no s/s of distress or discomfort, no SOB, no c/o pain. VS WNL. Patient received due medications as ordered, tolerated well. HOB elevated as tolerated for aspiration precautions. Fall precautions observed. Patient reminded to use call light for assistance. Assisted with ADLs and turning and repositioning as needed and tolerated. Needs anticipated and attended. Call light within reach.
[2020-08-23] MEDS ORDERED: RIFA550T PO (13:10)
[2020-08-23] MEDS ORDERED: Thiamine HCL PO (13:10)
[2020-08-23] MEDS ORDERED: Folic Acid PO (13:10)
[2020-08-23] MEDS ORDERED: MULT-24 PO (13:10)
[2020-08-23] MEDS ORDERED: LACT10SO58 PO (13:10)
--- NOTE | 2020-08-23 15:20 | NUR ---
Received order for discharge back to SNF. Noted and carried out. Patient and family informed of discharge. Discharge instructions, and medications explained to patient. Report was given to the RN supervisor electronics processing at the SNF. Upon complete body assessment, skin intact, with discoloration on BLE noted, no s/s of distress or discomfort, no changes in LOC, no SOB noted, no c/o pain. VS WNL. Assisted with ADLs. Patient kept clean and dry. Good pericare provided. 15:15 Transportation arrived, report given. IV removed, no bleeding, no swelling on site. All personal belongings sent with patient, no missing. Patient left at 15:20 with transportation, patient left in stable condition. VS WNL.
== END 2020-08-23 15:20 | DRG 441 ==
LOC: ER 18:48 → TELE2 20:39 → TELE 08-20 22:20 → MED 08-21 11:06
PROVIDERS: ADMIT Internal Medicine; ATTEND Student in an Organized Health Care Education/Training Program
DX: K72.90 Hepatic failure, unspecified without coma (principal); G93.41 Metabolic encephalopathy; E43 Unspecified severe protein-calorie malnutrition; N17.0 Acute kidney failure with tubular necrosis; D61.818 Other pancytopenia; E87.0 Hyperosmolality and hypernatremia; E72.20 Disorder of urea cycle metabolism, unspecified; Z86.73 Personal history of transient ischemic attack (TIA), and cerebral infarction without residual deficits; I13.10 Hypertensive heart and chronic kidney disease without heart failure, with stage 1 through stage 4 chronic kidney disease, or unspecified chronic kidney disease; N18.9 Chronic kidney disease, unspecified; K74.60 Unspecified cirrhosis of liver; K21.9 Gastro-esophageal reflux disease without esophagitis; F41.9 Anxiety disorder, unspecified; F03.90 Unspecified dementia, unspecified severity, without behavioral disturbance, psychotic disturbance, mood disturbance, and anxiety; F32.9 Major depressive disorder, single episode, unspecified; Z79.82 Long term (current) use of aspirin; Z79.890 Hormone replacement therapy; Z79.899 Other long term (current) drug therapy; F20.9 Schizophrenia, unspecified; E16.2 Hypoglycemia, unspecified; D53.9 Nutritional anemia, unspecified; E03.9 Hypothyroidism, unspecified; E86.1 Hypovolemia
CPT/HCPCS: 36415; 70450-TC; 71045-TC; 80048-TC; 80076-TC; 82140-TC; 82962-TC; 83735-TC; 84100-TC; 84439-TC; 84443-TC; 85025-TC; 87081-TC; 93307-TC; 97110-TC; 97112-TC; 97530-TC; G0378; G0480; J3475; J3490; J7040; U0003-CS

== ENCOUNTER 2021-02-21 19:14 | Inpatient (IN) | payer MEDICARE, OTHER ==
[~2021-02-21] VITALS: Ht 182.9 cm; Wt 117.5 kg
[~2021-02-21 19:14] MED LIST: ACET-2605 PO; ACET325C7 PO; AMIN887L PO; ASPI-1169 PO; CALC-343 PO; CRAN3875 PO; CRAN425C6 PO; DONE5TAB7 PO; FERR325T23 PO; Folic Acid PO; LACT10SO3 PO; LACT10SO58 PO; LATA2.5D2 OP; LEVO25TA7 PO; MEMA1CAP PO; METO25TA3 PO; MULT-24 PO; PARO10TA86 PO; QUET25TA PO; RIFA550T PO; Thiamine HCL PO
--- NOTE | 2021-02-21 19:25 | NUR ---
BIBPA FROM [facility] C/O MORE ALTERED THAN USUAL, POOR INTAKE, AND GENERALIZED WEAKNESS. PER EMT, PT'S BASELINE AAOX1 AND RESPONSIVE TO QUESTIONS. PT AAOX0 AND RESPONSIVE TO PAINFUL STIMULI ON ARRIVAL. VITAL SIGNS STABLE. RESPIRATIONS EVEN AND UNLABORED. NO ACUTE DISTRESS NOTED AT THIS TIME. PLACED IN GOWN AND ON CONTINUOUS COMPANY ACCOUNTANT AND PULSE OX, WILL CONTINUE TO MONITOR
--- NOTE | 2021-02-21 19:40 | NUR ---
IV INITATIED RAC 18G. LABS DRAWN FROM SITE. COSMETICS PRESSER AT BEDSIDE FOR COLLECTION. IV INTACT AND PATENT, PLACED ON SALINE LOCK
[2021-02-21] MEDS ORDERED: MEMA10TA56 PO (19:41)
[2021-02-21] MEDS ORDERED: ASCO-352 PO (19:41)
[2021-02-21] MEDS ORDERED: CALC-167 PO (19:41)
[2021-02-21] MEDS ORDERED: METO25TA6 PO (19:41)
--- NOTE | 2021-02-21 19:42 | NUR ---
DR. QUINTANILLA AT BEDSIDE FOR EVAL
--- NOTE | 2021-02-21 19:47 | NUR ---
URINE COLLECTED AND SENT TO LAB
[2021-02-21 20:00] LABS: BASOPHILS # (AUTO) 0.1 /CMM (0.0-0.2); EOSINOPHILS % (AUTO) 4.2 % (0.0-6.0); HEMATOCRIT 29 % (39-51); HEMOGLOBIN 9.8 g/dL (13.5-17.5); LYMPHOCYTES # (AUTO) 2.2 /CMM (0.8-4.8); MEAN CORPUSCULAR HGB CONC 34 g/dl (31.0-36.0); MEAN CORPUSCULAR VOLUME 106 fL (80-96); MONOCYTES # (AUTO) 0.9 /CMM (0.1-1.30); MONOCYTES % (AUTO) 14.3 % (2.0-12.0); NEUTROPHILS % (AUTO) 46.5 % (43.0-81.0); PLATELET COUNT (AUTO) 97 /CMM (150-450); RED BLOOD CELL COUNT(AUTO) 2.71 MIL/uL (4.5-6.0); WHITE BLOOD COUNT (AUTO) 6.4 K/uL (4.3-11.0)
[2021-02-21] MEDS ORDERED: IV NS 0.9% 1,000 ML BAG IV ONE (20:00)
--- NOTE | 2021-02-21 20:05 | NUR ---
COVID SWAB COLLECTED, CALLED LAB FOR MATERIALS TECHNICIAN
[2021-02-21 20:13] LABS: CALCIUM, SERUM 7.9 mg/dL (8.5-10.1); CREATININE 1.3 mg/dL (0.6-1.3); POTASSIUM 4.6 mmol/L (3.5-5.1)
--- NOTE | 2021-02-21 20:15 | NUR ---
PT BROUGHT BY RADIOLOGY TO CT AND [facility]IA [facility]
[2021-02-21 20:18] LABS: BILIRUBIN,URINE Negative (NEGATIVE); COLOR,URINE DARK YELLOW (YELLOW); LEUKOCYTE ESTERASE ,URINE Negative (NEGATIVE); NITRITE, URINE Negative (NEGATIVE); PROTEIN,URINE Negative (NEGATIVE); UGLUCOSE Negative (NEGATIVE); UROBILINOGEN,URINE >=8.0 EU/dL (0.2)
[2021-02-21 20:19] LABS: ALBUMIN 1.9 g/dL (3.4-5.0); BILIRUBIN,DIRECT 0.4 mg/dL (0.0-0.2); BILIRUBIN,TOTAL 1.3 mg/dL (0.2-1.0); TOTAL PROTEIN, SERUM 7.2 g/dL (6.4-8.2)
--- NOTE | 2021-02-21 20:25 | NUR ---
PT RETURNED FROM CT
--- NOTE | 2021-02-21 20:49 | NUR ---
CALL FROM LAB. RAPID COVID NEGATIVE.
[2021-02-21] MEDS ORDERED: ASPIRIN 325 MG TABLET PO ONE (21:00)
[2021-02-21] MEDS ORDERED: ENOXAPARIN SODIUM 80 MG/0.8 ML DISP.SYRIN SQ ONE ×2 (21:00→21:33)
--- NOTE | 2021-02-21 21:01 | NUR ---
CAMRON 106
[2021-02-21] MEDS ORDERED: MAGNESIUM HYDROXIDE 30 ML UDC PO PRN (21:30)
[2021-02-21] MEDS ORDERED: MAG HYDROX/AL HYDROX/SIMETH 30 ML UDC PO PRN (21:30)
[2021-02-21] MEDS ORDERED: ONDANSETRON HCL/PF 4 MG/2 ML VIAL IVP PRN (21:30)
[2021-02-21] MEDS ORDERED: ACETAMINOPHEN 325 MG TABLET PO PRN (21:30)
[2021-02-21] MEDS ORDERED: MORPHINE SULFATE INJ 2 MG/ML DISP.SYRIN IV PRN (21:30)
[2021-02-21] MEDS ORDERED: Z GUARD REMEDY 2 OZ OINT TP PRN (21:30)
[2021-02-21] MEDS ORDERED: IV NS 0.9% 1,000 ML IV ONE (21:30)
[2021-02-21] MEDS ORDERED: HYDROCODONE/APAP 5/325MG TABLET PO PRN (21:30)
[2021-02-21] MEDS ORDERED: NITROGLYCERIN 0.4 MG/TAB BOTTLE SL PRN (21:30)
[2021-02-21] MEDS ORDERED: ASPIRIN 300 MG/SUPP.RECT RC ONE ×2 (21:33→22:00)
[2021-02-21] MEDS ORDERED: ENOXAPARIN SODIUM 40 MG/0.4 ML DISP.SYRIN SQ ONE (21:33)
[2021-02-21] MEDS ORDERED: DONEPEZIL 5 MG TABLET PO SCH (22:00)
[2021-02-21] MEDS ORDERED: LATANOPROST EYE DROP 0.005% 2.5 ML BOTTLE OP SCH (22:00)
--- NOTE | 2021-02-21 22:09 | NUR ---
REPORT GIVEN TO FABIOLA WILKERSON FOR GWEN
--- NOTE | 2021-02-21 22:18 | NUR ---
PT TRANSFERRED PER ACLS PROTOCOL
--- NOTE | 2021-02-21 22:30 | NUR ---
ADMITTING NOTE REC'D PT IN BED FROM ER VIA GURNEY. PT IS A/O X0, WITHDRAWS FROM PAIN. PT ON ROOM AIR AT THIS TIME, NO S/S OF RESP DISTRESS OR SOB NOTED. BREATHING IS EVEN AND UNLABORED. PT ON TELE MONITORING PRESENTS WITH SINUS AMILCAR, WITH HEART RATE OF 51 BASELINE TO PT. RIGHT AC IV SITE FLUSHED, PT BED BATH DONE, CHANGED INTO GOWN. UPON SKIN ASSESSMENT, PT NOTED TO HAVE MULTIPLE BRUISING AND DISCOLORATION ON UPPER BODY. REDNESS NOTED IN PERINEAL/THIGH FOLDS. SKIN TEAR ON SCROTUM/PENIS. WOUND CONSULT ORDERED. SAFETY MEASURES IN PLACE, APPLICABLE ISOLATION PRECAUTION IN PLACE PENDING PCR COVID RESULT. PT HOB ELEVATED. SIDE RAILS UP X2, BED LOCKED IN LOWEST POSITION. WITH BED ALARM ON. PT UNABLE TO USE CALL LIGHT DUE TO ALTERED MENTAL STATUS, WILL CONT TO MONITOR FREQUENTLY THROUGHOUT SHIFT.
[2021-02-21 22:44] VITALS: BP 145/54
[2021-02-22] VITALS: BP 114/40
--- NOTE | 2021-02-22 00:02 | NUR ---
RN NOTE UNABLE TO ADMINISTER EYE DROPS D/T NONE AVAILABLE ON UNIT FOR NEW ADMIT. UNABLE TO ADMINISTER PO MEDS DUE TO PT AMS. UNABLE TO FOLLOW COMMANDS STAY AWAKE TO SAFELY TAKE MEDICATION. NOTIFIED GASOLINE PUMP MECHANIC CAMMIE.
--- NOTE | 2021-02-22 02:30 | NUR ---
RN NOTE ORDERS FROM JOSSUE BONDS TO KEEP PT NPO, PENDING SWALLOW EVAL TOMORROW. ORDERS CARRIED OUT.
--- NOTE | 2021-02-22 02:46 | NUR ---
RN NOTE TROPONIN RESULT OF 1.688, TRENDING DOWN. RELAYED INFORMATION NOTIFIED DIAMOND DIE MAKER ATILIOTIAK. WILL CONT TO MONITOR. CALL RESULT FROM CARLOS FROM LAB
[2021-02-22] MEDS ORDERED: LACTULOSE 10 G/15 ML UDC (PYXIS) PO SCH (03:30)
[2021-02-22 04:00] VITALS: BP 125/43
--- NOTE | 2021-02-22 05:10 | NUR ---
RN NOTE PT HAD 1 BM, SOFT FORMED. BROWN. WNL. MARIA LUISA CARE DONE, LINENS CHANGED.
[2021-02-22 05:58] LABS: BASOPHILS % (AUTO) 0.8 % (0.0-2.0); EOSINOPHILS % (AUTO) 6.3 % (0.0-6.0); HEMATOCRIT 27 % (39-51); HEMOGLOBIN 9.1 g/dL (13.5-17.5); LYMPHOCYTES # (AUTO) 1.9 /CMM (0.8-4.8); LYMPHOCYTES % (AUTO) 31.4 % (20.0-44.0); MEAN CORPUSCULAR HGB CONC 34 g/dl (31.0-36.0); MEAN CORPUSCULAR VOLUME 107 fL (80-96); MONOCYTES % (AUTO) 16.8 % (2.0-12.0); NEUTROPHILS # (AUTO) 2.8 /CMM (1.8-8.9); NEUTROPHILS % (AUTO) 44.7 % (43.0-81.0); PLATELET COUNT (AUTO) 79 /CMM (150-450); RED BLOOD CELL COUNT(AUTO) 2.52 MIL/uL (4.5-6.0); WHITE BLOOD COUNT (AUTO) 6.2 K/uL (4.3-11.0)
[2021-02-22 06:20] LABS: THYROID STIMULATING HORMONE 2.03 uIU/mL (0.358-3.74)
[2021-02-22 06:32] LABS: ALBUMIN 1.6 g/dL (3.4-5.0); BILIRUBIN,TOTAL 1.5 mg/dL (0.2-1.0); CALCIUM, SERUM 7.5 mg/dL (8.5-10.1); PHOSPHORUS 3.7 mg/dL (2.5-4.9); POTASSIUM 4.8 mmol/L (3.5-5.1); TOTAL PROTEIN, SERUM 6.5 g/dL (6.4-8.2)
--- NOTE | 2021-02-22 06:48 | NUR ---
RN CLOSING NOTE PT IS RESTING IN BED, NO SIGNIFICANT CHANGES OVER NIGHT. ON 2L OF O2 VIA NASAL CANNULA. NO RESP DISTRESS OR SOB NOTED. BREATHING EVEN AND UNLABORED. PT SINUS AMILCAR HEART RATE 49 AT THIS TIME. PT IS KEPT NPO AT THIS TIME. NO S/S OF PAIN NOTED. PT SAFETY MEASURES IN PLACE HOB ELEVATED/ SIDE RAILS UP X2 BED LOCKED IN LOWEST POSITION WITH BED ALARM ON. WILL ENDORSE TO AM SHIFT FOR CONTINUATION OF CARE.
--- NOTE | 2021-02-22 07:56 | NUR ---
REPORT RECEIVED FROM INGA HICKS. PER REPORT PT IS UNRESPONSIVE. UPON EVALUATION PT IS MINIMALLY RESPONSIVE, OPENS EYES, DOES NOT FOLLOW COMMANDS, DOES NOT APPEAR TO BE ABLE TO SWALLOW PILLS OR FOOD. NG TUBE TO BE INSERTED FOR MEDS. PER POLST FROM [facility] PT SHOULD HAVE NO CPR, DO NOT INTUBATED, SW CONSULT FOR EVALUATION OF POLST. PT IS CURRENTLY A FULL CODE. PT CHECKED ON HOURLY AND PRN BY NURSING STAFF. Addendum: 02/22/21 at 1451 by VEL GILLETTE RN PT'S ADVANCED DIRECTIVE SAYS CPR OK, DO NOT INTUBATE.
[2021-02-22 08:00] VITALS: BP 124/51
[2021-02-22] MEDS ORDERED: FERROUS SULFATE (325 MG) 325 MG/TAB TABLET PO SCH (08:00)
--- NOTE | 2021-02-22 08:17 | NUR ---
WOUND CARE CONSULT: PT PRESENTS WITH REDNESS WITH OPEN SKIN TO PENIS, REDNESS TO SCROTUM, PERINEUM AND DRY ABRASIONS/SCRATCHES TO LOWER LEGS, PRESENT ON ADMISSION. RECOMMENDATIONS MADE FOR SKIN PROTECTION. DISCUSSED WITH NURSING STAFF. FIRST STEP LOW AIR LOSS MATTRESS IS ON ORDER. PT IS IMMOBILE. MD IN AGREEMENT WITH PLAN OF CARE.
[2021-02-22] MEDS ORDERED: Medication Not On Formulary EA (Cran/Vitc/Mannose/Inulin/Brom (Uti-Stat Liquid) 30 ML) PO SCH (09:00)
[2021-02-22] MEDS ORDERED: PAROXETINE HCL 10 MG TABLET PO SCH (09:00)
[2021-02-22] MEDS: METOPROLOL TARTRATE 25 MG TABLET PO SCH (09:00)
[2021-02-22] MEDS: ENOXAPARIN SODIUM 40 MG/0.4 ML DISP.SYRIN SQ SCH (09:00)
[2021-02-22] MEDS: CLOTRIMAZOLE 1% 15 GM TUBE TP SCH ×2 (09:00→17:13)
[2021-02-22] MEDS ORDERED: MEMANTINE HCL 5 MG TABLET PO SCH (09:00)
[2021-02-22] MEDS: PROSOURCE / PROSTAT (PYXIS) 30 ML UDC PO SCH (09:00)
[2021-02-22] MEDS ORDERED: QUETIAPINE FUMARATE 25 MG TABLET PO SCH (09:00)
[2021-02-22 09:09] LABS: ABG BASE EXCESS -1.7 mmol/L; ABG OXYGEN SATURATION 98.5 % (92.0-98.5); ABG PCO2 38.9 mmHg (35.0-45.0); ABG PH 7.391 (7.350-7.450); ABG PO2 139.7 mmHg (75.0-100.0); COHb 0.1 % (0.5-1.5); MetHb 0.1 % (0.0-1.5); O2Hb 98.3 % (94.0-97.0); SITE, ABG Right Radial
[2021-02-22 09:30] LABS: BAND % (MANUAL) 2 % (0.0-5.0); EOSINOPHILS % (MANUAL) 2 % (0-4); LYMPHOCYTES % (MANUAL) 25 % (16-48); MONOCYTES % (MANUAL) 13 % (0-11.0); NEUTROPHILS % (MANUAL) 58 (42-76)
--- NOTE | 2021-02-22 09:30 | NUR ---
PER PT'S DAUGHTER PT HAD BELLS PALSY APPROXIMATELY 15 YEARS AGO WITH LEFT SIDED FACIAL DROOP A PERMANENT SIDE EFFECT. PER DAUGHTER PT HAS NEVER HAD A STROKE. 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 DR. JOHNSON AND DR. RAMAN NOTIFIED.
--- NOTE | 2021-02-22 10:25 | NUR ---
ALDRIDGE CATHETER INSERTED PER MD ORDERS WITHOUT DIFFICULTY, >500 ML CLEAR YELLOW URINE RETURNED. URINE SAMPLE SENT TO LAB. 16 TURKISH NG TUBE INSERTED AT THIS TIME IN RIGHT NARES WITHOUT DIFFICULTY PER MD ORDERS. PLACEMENT CHECKED PER PROTOCOL.
[2021-02-22] MEDS: MULTIVITAMINS,THERAGRAN 1 UDTAB TABLET PO SCH (10:31)
[2021-02-22] MEDS: ASPIRIN 81 MG TAB.CHEW PO SCH (10:31)
[2021-02-22] MEDS: ASCORBIC ACID 500 MG TABLET PO SCH ×2 (10:32→17:12)
[2021-02-22] MEDS: LEVOTHYROXINE SODIUM 25 MCG TABLET PO SCH (10:32)
[2021-02-22] MEDS: CALCIUM CARB 600MG /VIT D 1 EACH TABLET PO SCH (10:32)
[2021-02-22] MEDS: LACTULOSE 10 G/15 ML UDC (PYXIS) PO SCH ×4 (11:34→22:17)
--- NOTE | 2021-02-22 11:48 | NUR ---
PER DR. RIOS DENISE AND LOVENOX TO BE HELD TODAY FOR LOW HR AND PLT OF 79
[2021-02-22 12:00] VITALS: BP 138/54
--- NOTE | 2021-02-22 15:14 | NUR ---
Research Worker Encyclopedia note: environmental services associate requested to obtain copy of patients [facility], [id number], [place] [id number]; ). SW spoke to FABIOLA Evans on the med-surg unit who stated that patients SNF has faxed over the POLST. Code status has been changed to DNR/DNI, based on POLST. No further SS intervention needed at this time, however SW will remain available if needed.
[2021-02-22 16:00] VITALS: BP 130/53
--- NOTE | 2021-02-22 18:16 | NUR ---
END OF SHIFT NOTE: PT HAD 800ML OUT OF ALDRIDGE THIS SHIFT WITH 1 BM. NO CHANGE IN NEURO STATUS THIS SHIFT. PT IS DNI PER POLST. COVID PCR PENDING, RAPID NEGATIVE. PER DOCUMENTATION FROM SNF PT RECEIVED BOTH COVID VACCINES ON 11/29 AND 12/30. PT CHECKED ON HOURLY AND PRN BY NURSING STAFF.
[2021-02-22 19:33] LABS: BILIRUBIN,URINE NEGATIVE (NEGATIVE); COLOR,URINE YELLOW (YELLOW); LEUKOCYTE ESTERASE ,URINE NEGATIVE (NEGATIVE); NITRITE, URINE NEGATIVE (NEGATIVE); PROTEIN,URINE NEGATIVE (NEGATIVE); UGLUCOSE NEGATIVE (NEGATIVE)
--- NOTE | 2021-02-22 19:40 | NUR ---
RN OPENING NOTES REC'D PT IN BED, PT IS A/O X0 AROUSABLE TO TOUCH, WITHDRAWS FROM PAIN. PT IS ON 3L OF O2 VIA NASAL CANNULA. TOLERATING WELL. NO SOB OR RESP DISTRESS NOTED. PT ON TELE MONITORING PRESENTS WITH SINUS AMILCAR HEART RATE OF 59 BASELINE TO PT. PT HAS NG TUBE, PRESENT CLAMPED. WILL F/U FOR POSITIVE PLACEMENT. IV SITE SALINE LOCKED. PT IN ISOLATION PRECAUTION PENDING COVID PCR RESULT. SAFETY MEASURES IN PLACE. SIDE RAILS UP X 3BED LOCKED IN LOWEST POSITION WITH BED ALARM ON. PT UNABLE TO USE CALL LIGHT, WILL CONT TO MONITOR FREQUENTLY FOR CHANGE OF CONDITION.
[2021-02-22 19:42] LABS: BACTERIA,URINE 1+ /HPF (None Seen); CREATININE, URINE 133.1 MG/DL (30.0-125.0); RBC,URINE 21-50 /HPF (0-2); SQUAMOUS EPITHELIAL CELL,UR 0-2 /HPF (None Seen); URINE TOTAL PROTEIN 9.1 mg/dL (0-11.9)
[2021-02-22 20:00] VITALS: BP 146/79
--- NOTE | 2021-02-22 20:55 | NUR ---
RN NOTE HOLDING MEDICATION UNTIL NASOGASTRIC PLACEMENT CONFIRMED VIA CHEST XRAY. XRAY STAT ORDERED. WILL WAIT FOR RESULTS UNTIL FURTHER MEDICATION ADMINISTRATION.
[2021-02-22 21:02] LABS: EOSINOPHIL,URINE None Seen
--- NOTE | 2021-02-22 21:50 | NUR ---
RN NOTE CXR CONFIRMS POSITIVE PLACEMENT, WILL ADMINISTER DUE MEDICATIONS WITH HOB ELEVATED/ASPIRATION PRECAUTIONS IN PLACE.
[2021-02-22] MEDS: LATANOPROST EYE DROP 0.005% 2.5 ML BOTTLE EACHEYE SCH (22:17)
[2021-02-23] VITALS: BP 129/55
[2021-02-23] MEDS: LACTULOSE 10 G/15 ML UDC (PYXIS) PO SCH ×4 (02:47→20:06)
--- NOTE | 2021-02-23 03:15 | NUR ---
RN NOTE RECEIVED CALL FROM BIANCA FROM LAB, REPORTING A TROPONIN LEVEL OF 1.398, LEVELS TRENDING DOWN SINCE ADMISSION.
[2021-02-23 04:00] VITALS: BP 118/48
--- NOTE | 2021-02-23 07:19 | NUR ---
RN CLOSING NOTES NO SIGNIFICANT CHANGES OVER NIGHT. PT STILL ON 2L OF OXYGEN TOLERATING WELL, NO S/S OF SOB OR RESP DISTRESS AT THIS TIME. NO S/S OF PAIN. ON TELE IS STILL SINUS AMILCAR WITH HEART RATE IN THE 50S. PT REMAINS WITH RIGHT AC IV, TKO. PT AFEBRILE. BED BATH DONE, WOUND CARE DONE. ALL NEEDS ATTENDED AND SAFETY MEASURES IN PLACE. HOB ELEVATED. SIDE RAILS UP X2, BED LOCKED IN LOWEST POSITION WITH BED ALARM ON. WILL ENDORSE TO AM SHIFT FOR CONTINUATION OF CARE.
--- NOTE | 2021-02-23 07:25 | NUR ---
RN OPENING NOTES RECEIVED PT AWAKE, ALERT, AND ORIENTED. NOT IN ANY RESPIRATORY DISTRESS. ON NASAL CANNULA 2L. NGT AT LEFT NARE. TELEMETRY IN PLACE. ALDRIDGE DRAINING TO GRAVITY. DIAPER IN. PERIPHERAL LINE ON THE RIGHT AC. NO COMPLAINS OF PAIN OR DISCOMFORT AT THIS TIME. BED LOCKED AND KEPT IN LOWEST POSITION. SAFETY MEASURES IN PLACE. WILL CONTINUE TO MONITOR.
[2021-02-23 08:00] VITALS: BP 134/56
[2021-02-23] MEDS: CALCIUM CARB 600MG /VIT D 1 EACH TABLET PO SCH (08:05)
[2021-02-23] MEDS: MULTIVITAMINS,THERAGRAN 1 UDTAB TABLET PO SCH (08:05)
[2021-02-23] MEDS: CLOTRIMAZOLE 1% 15 GM TUBE TP SCH ×2 (08:05→16:02)
[2021-02-23] MEDS: ASPIRIN 81 MG TAB.CHEW PO SCH (08:05)
[2021-02-23] MEDS: ASCORBIC ACID 500 MG TABLET PO SCH ×2 (08:05→16:01)
[2021-02-23] MEDS: LEVOTHYROXINE SODIUM 25 MCG TABLET PO SCH (08:05)
[2021-02-23] MEDS: METOPROLOL TARTRATE 25 MG TABLET PO SCH (08:06)
[2021-02-23] MEDS: ENOXAPARIN SODIUM 40 MG/0.4 ML DISP.SYRIN SQ SCH (08:07)
[2021-02-23] MEDS: PROSOURCE / PROSTAT (PYXIS) 30 ML UDC PO SCH (08:09)
[2021-02-23 12:00] VITALS: BP 117/49
[2021-02-23 16:00] VITALS: BP 121/48
[2021-02-23] MEDS: JEVITY 1.2 CAL 1,000 ML BOTTLE GT PRN (19:00)
--- NOTE | 2021-02-23 19:05 | NUR ---
RECEIVED PT ON BED AWAKE A//O X2 ON O2 2L VIA NC SPO2 98% NO SIGN AND SYMPTOMS OF RESPIRATORY DISTRESS, TELE MONITOR READS SINUS AMILCAR 50'S, HAVE R NARES NGTUBE PLACEMENT WAS CHECKED AND VERIFIED VIA AUSCULTATIONS WITH RUNNING JEVITY @ 40ML//HR RESIDUAL IS 5ML TOLERATING WELL, HAVE ALDRIDGE CATHETER IN PLACE WITH YELLOW URINE DRAINING VIA GRAVITY BED ON LOWEST POSITION AND LOCKED SIDE RAILS UP X 2 CALL LIGHT WITHIN REACH WILL CONT TO MONITOR.
--- NOTE | 2021-02-23 19:07 | NUR ---
RN CLOSING NOTES PATIENT IS A&O X3 AND RESPONSIVE. STARTED ON JEVITY 1.2 AT 30 ML/HR AND TOLERATING IT. BOWELS OPENED 3X THIS SHIFT. ENDORSED TO NIGHT RN FOR CONTINUITY OF CARE.
[2021-02-23 20:00] VITALS: BP 135/53
[2021-02-23] MEDS: LATANOPROST EYE DROP 0.005% 2.5 ML BOTTLE EACHEYE SCH (21:17)
[2021-02-24] VITALS: BP 123/47
[2021-02-24] MEDS: LACTULOSE 10 G/15 ML UDC (PYXIS) PO SCH ×4 (02:08→20:35)
[2021-02-24 04:00] VITALS: BP 101/51
[2021-02-24] MEDS: LEVOTHYROXINE SODIUM 25 MCG TABLET PO SCH (06:09)
--- NOTE | 2021-02-24 06:45 | NUR ---
PT ON BED SLEEPING EASY TO WAKE UP STILL HAVE EPISODE OF A/O X2 , ON 2L O2 VIA NC SPO2 98% NO SIGN AND SYMPTOMS OF RESPIRATORY DISTRESS, TELE MONITOR READS SINUS TBRADY 50S NO SIGNIFICANT CHANGES ON CONDITION NOTED ALL NEEDS ATTENDED, ALDRIDGE CATHETER HAVE 650 OUT PUT WITH PETER URINE, BED ON LOWEST POSITION AND LOCKED SIDE RAILS UP X2 CALL LIGHT WITHIN REACH WILL ENDORSED TO AM SHIFT
--- NOTE | 2021-02-24 07:10 | NUR ---
RN NOTES RECEIVED PT IN BED RESTING IN MODERATE HIGH BACK REST. A/O X2 , ON 2L O2 VIA NC SPO2 98% NO SIGN AND SYMPTOMS OF RESPIRATORY DISTRESS NOTED AT THIS TIME, TELE MONITOR READS SINUS AMILCAR 50S, NG TUBE FEEDING NOTED, IV ACCESS ON RAC#18, INTACT AND PATENT WITH NO SIGNS OF INFILTRATION, SAFETY MEASURES IN PLACE, BED IN LOWEST LOCKED POSITION WITH SIDE RAILS UP X2, CALL LIGHT WITHIN EASY REACH. WILL CONTINUE TO MONITOR.
[2021-02-24 08:00] VITALS: BP 114/45
[2021-02-24] MEDS: ASCORBIC ACID 500 MG TABLET PO SCH ×2 (08:10→16:10)
[2021-02-24] MEDS: ASPIRIN 81 MG TAB.CHEW PO SCH (08:10)
[2021-02-24] MEDS: CALCIUM CARB 600MG /VIT D 1 EACH TABLET PO SCH (08:10)
[2021-02-24] MEDS: MULTIVITAMINS,THERAGRAN 1 UDTAB TABLET PO SCH (08:10)
[2021-02-24] MEDS: PROSOURCE / PROSTAT (PYXIS) 30 ML UDC PO SCH (08:11)
[2021-02-24] MEDS: CLOTRIMAZOLE 1% 15 GM TUBE TP SCH ×2 (08:15→16:11)
[2021-02-24] MEDS: METOPROLOL TARTRATE 25 MG TABLET PO SCH (08:16)
[2021-02-24] MEDS: ENOXAPARIN SODIUM 40 MG/0.4 ML DISP.SYRIN SQ SCH (09:00)
--- NOTE | 2021-02-24 09:40 | NUR ---
RN NOTES SEEN AND EXAMINED BY DR. RAMAN, HELD LOVENOX DUE TO LOW PLATELET, WILL CONTINUE TO MONITOR.
[2021-02-24 13:00] VITALS: BP 110/50
--- NOTE | 2021-02-24 18:27 | NUR ---
PT IN BED RESTING IN MODERATE HIGH BACK REST. A/O X2 , ON 2L O2 VIA NC SPO2 98% NO SIGN AND SYMPTOMS OF RESPIRATORY DISTRESS NOTED AT THIS TIME, NG TUBE FEEDING NOTED, IV ACCESS ON RAC#18, INTACT AND PATENT WITH NO SIGNS OF INFILTRATION, SAFETY MEASURES IN PLACE, BED IN LOWEST LOCKED POSITION WITH SIDE RAILS UP X2, CALL LIGHT WITHIN EASY REACH. WILL ENDORSE PLAN OF CARE TO ONCOMING SHIFT
--- NOTE | 2021-02-24 19:36 | NUR ---
RN NOTE PATIENT IN BED WITH HEAD OF BED ELEVATED. A/O X2, EASILY AROUSED. ON O2 2LPM VIA NASAL CANNULA, O2 SAT 98%. NO SOB NOTED. NGT NOTED RUNNING JEVITY 1.2 @ 30ML/HR, NO RESIDUAL. WITH RIGHT AC #18, PATENT AND INTACT. NO S/S OF ANY INFILTRATION. SAFETY MEASURES IMPLEMENTED. BED LOCKED AND IN LOWEST POSITION. CALL LIGHT WITHIN REACH. WILL CONTINUE TO MONITOR.
[2021-02-24 21:00] VITALS: BP 143/53
[2021-02-24] MEDS: LATANOPROST EYE DROP 0.005% 2.5 ML BOTTLE EACHEYE SCH (21:48)
[2021-02-25] MEDS: LACTULOSE 10 G/15 ML UDC (PYXIS) PO SCH ×4 (01:06→20:06)
[2021-02-25 05:00] VITALS: BP 117/44
[2021-02-25] MEDS: LEVOTHYROXINE SODIUM 25 MCG TABLET PO SCH (06:35)
[2021-02-25] MEDS: JEVITY 1.2 CAL 1,000 ML BOTTLE GT PRN (06:41)
--- NOTE | 2021-02-25 06:51 | NUR ---
RN NOTE PATIENT IN BED WITH HEAD OF BED ELEVATED. A/O X2, EASILY AROUSED. ON O2 2LPM VIA NASAL CANNULA, O2 SAT 100%. NO SOB NOTED. NGT NOTED RUNNING JEVITY 1.2 @ 30ML/HR, NO RESIDUAL. WITH RIGHT AC #18, PATENT AND INTACT. NO S/S OF ANY INFILTRATION. ALDRIDGE CATH DRAINING TO GRAVITY OUTPUT OF 300CC. ALL DUE MEDS GIVEN ORDERED. SAFETY MEASURES IMPLEMENTED. BED LOCKED AND IN LOWEST POSITION. CALL LIGHT WITHIN REACH. WILL ENDORSE TO AM SHIFT.
--- NOTE | 2021-02-25 07:50 | NUR ---
RN OPENING NOTE PATIENT IS CURRENTLY IN BED WITH HOB AT SEMI FOWLERS POSITION. PATIENT IS AOX2. PATIENT IS ON 2L NC WITH NO SIGNS OF LABORED BREATHING. ALDRIDGE CATHETER IS IN PLACE. NGT IS IN PLACE. RAC#18 IS PATENT AND INTACT. BED IS LOCKED IN THE LOWEST POSITION, 3 GUARD RAILS RAISED, CALL OCASIO WITHIN REACH, AND ALL HOSPITAL SAFETY PRECAUTIONS ARE BEING FOLLOWED. WILL CONTINUE TO MONITOR THROUGHOUT SHIFT.
[2021-02-25] MEDS: ASPIRIN 81 MG TAB.CHEW PO SCH (08:03)
[2021-02-25] MEDS: ASCORBIC ACID 500 MG TABLET PO SCH ×2 (08:03→16:08)
[2021-02-25] MEDS: MULTIVITAMINS,THERAGRAN 1 UDTAB TABLET PO SCH (08:04)
[2021-02-25] MEDS: CALCIUM CARB 600MG /VIT D 1 EACH TABLET PO SCH (08:04)
[2021-02-25] MEDS: METOPROLOL TARTRATE 25 MG TABLET PO SCH (08:07)
[2021-02-25] MEDS: ENOXAPARIN SODIUM 40 MG/0.4 ML DISP.SYRIN SQ SCH (08:09)
[2021-02-25] MEDS: PROSOURCE / PROSTAT (PYXIS) 30 ML UDC PO SCH (08:59)
--- NOTE | 2021-02-25 09:05 | NUR ---
RN NOTE PATIENT'S NGTUBE REMOVED PER DR. RAMAN'S REQUEST. AWAITING SWALLOW EVAL.
[2021-02-25] MEDS: CLOTRIMAZOLE 1% 15 GM TUBE TP SCH ×2 (09:26→16:42)
[2021-02-25 16:00] VITALS: BP 108/40
--- NOTE | 2021-02-25 18:49 | NUR ---
RN CLOSING NOTE PATIENT IS CURRENTLY IN BED WITH HOB AT SEMI FOWLERS POSITION. PATIENT IS AOX2. PATIENT IS ON 2L NC WITH NO SIGNS OF LABORED BREATHING. ALDRIDGE CATHETER IS IN PLACE. RAC#18 IS PATENT AND INTACT. BED IS LOCKED IN THE LOWEST POSITION, 3 GUARD RAILS RAISED, CALL OCASIO WITHIN REACH, AND ALL HOSPITAL SAFETY PRECAUTIONS ARE BEING FOLLOWED. ALL DUE MEDS GIVEN AND PATIENT REMAINED STABLE THROUGHOUT SHIFT. WILL ENDORSE TO SPARE PERSON RN.
--- NOTE | 2021-02-25 19:22 | NUR ---
RN NOTES PATIENT IS CURRENTLY IN BED WITH HOB AT SEMI FOWLERS POSITION. PATIENT IS AOX2. PATIENT IS ON 2L NC WITH NO SIGNS OF LABORED BREATHING. ALDRIDGE CATHETER IS IN PLACE. RAC#18 IS PATENT AND INTACT. BED IS LOCKED IN THE LOWEST POSITION, 3 GUARD RAILS RAISED, CALL LIGHT WITHIN REACH, AND ALL HOSPITAL SAFETY PRECAUTIONS ARE BEING FOLLOWED. WILL CONTINUE TO MONITOR.
[2021-02-25] MEDS: LATANOPROST EYE DROP 0.005% 2.5 ML BOTTLE EACHEYE SCH (21:49)
[2021-02-25 22:00] VITALS: BP 145/50
[2021-02-26] MEDS: LACTULOSE 10 G/15 ML UDC (PYXIS) PO SCH ×4 (02:05→20:26)
[2021-02-26 05:40] VITALS: BP 140/65
[2021-02-26] MEDS: LEVOTHYROXINE SODIUM 25 MCG TABLET PO SCH ×2 (06:49→07:00)
--- NOTE | 2021-02-26 07:11 | NUR ---
RN NOTES PATIENT IS CURRENTLY IN BED WITH HOB AT SEMI FOWLERS POSITION. PATIENT IS AOX2. PATIENT IS ON 2L NC WITH NO SIGNS OF LABORED BREATHING. ALDRIDGE CATHETER IS IN PLACE. RAC#18 IS PATENT AND INTACT. BED IS LOCKED IN THE LOWEST POSITION, 3 GUARD RAILS RAISED, CALL LIGHT WITHIN REACH, AND ALL HOSPITAL SAFETY PRECAUTIONS ARE BEING FOLLOWED. WILL ENDORSE CARE TO DAY SHIFT.
--- NOTE | 2021-02-26 07:30 | NUR ---
RN OPENING NOTES; RECEIVED PATIENT IN BED AWAKE, PT IS ALERT AND ORIENTATED X2.PATIENT IS MED/SURG STATUS, PT ALSO CURRENTLY HAS AN INDWELLING/ALDRIDGE CATHETER. PATIENT IS BEDRIDDEN AND HAS REDNESS IN PENIS AND GROIN WILL APPLY PRESCRIBED LOTRIMIN AND ZGUARD SCHEDULED. PATIENT IS A FALL RISK PATIENT, SAFETY PRECAUTIONS HAVE BEEN INSTITUTED BED IS PLACED IN LOWEST POSITION, THREE SIDE RAILS ARE UP AND CALL LIGHT WITHIN PT'S REACH. PATIENT HAS A RIGHT ANTECUBITAL IV ACCESS 18 GAUGE. WILL CONTINUE TO MONITOR PT THROUGHOUT SHIFT.
--- NOTE | 2021-02-26 08:45 | NUR ---
DR BARROSO NOTIFIED ABOUT TRENDING BP, CONT TO FOLLOW UP WITH TREATMENT PLAN AND MEDICATIONS ADMINISTRATION
[2021-02-26] MEDS: ASCORBIC ACID 500 MG TABLET PO SCH ×2 (08:48→17:12)
[2021-02-26] MEDS: CALCIUM CARB 600MG /VIT D 1 EACH TABLET PO SCH (08:48)
[2021-02-26] MEDS: ASPIRIN 81 MG TAB.CHEW PO SCH (08:48)
[2021-02-26] MEDS: MULTIVITAMINS,THERAGRAN 1 UDTAB TABLET PO SCH (08:49)
[2021-02-26] MEDS: PROSOURCE / PROSTAT (PYXIS) 30 ML UDC PO SCH (08:57)
[2021-02-26] MEDS: CLOTRIMAZOLE 1% 15 GM TUBE TP SCH ×2 (08:57→17:12)
[2021-02-26] MEDS: METOPROLOL TARTRATE 25 MG TABLET PO SCH (08:57)
[2021-02-26] MEDS: ENOXAPARIN SODIUM 40 MG/0.4 ML DISP.SYRIN SQ SCH ×2 (08:59→09:55)
[2021-02-26 09:01] LABS: BASOPHILS % (AUTO) 0.5 % (0.0-2.0); EOSINOPHILS % (AUTO) 5.1 % (0.0-6.0); HEMATOCRIT 25 % (39-51); HEMOGLOBIN 8.6 g/dL (13.5-17.5); LYMPHOCYTES # (AUTO) 1.9 /CMM (0.8-4.8); LYMPHOCYTES % (AUTO) 29.6 % (20.0-44.0); MEAN CORPUSCULAR HGB CONC 34 g/dl (31.0-36.0); MEAN CORPUSCULAR VOLUME 107 fL (80-96); MONOCYTES # (AUTO) 0.9 /CMM (0.1-1.30); MONOCYTES % (AUTO) 13.7 % (2.0-12.0); NEUTROPHILS # (AUTO) 3.3 /CMM (1.8-8.9); NEUTROPHILS % (AUTO) 51.1 % (43.0-81.0); PLATELET COUNT (AUTO) 94 /CMM (150-450); RED BLOOD CELL COUNT(AUTO) 2.34 MIL/uL (4.5-6.0); WHITE BLOOD COUNT (AUTO) 6.4 K/uL (4.3-11.0)
[2021-02-26 09:15] LABS: ALBUMIN 1.6 g/dL (3.4-5.0); BILIRUBIN,TOTAL 1.2 mg/dL (0.2-1.0); CALCIUM, SERUM 8.1 mg/dL (8.5-10.1); MAGNESIUM 1.7 mg/dL (1.8-2.4); PHOSPHORUS 3.7 mg/dL (2.5-4.9); POTASSIUM 4.1 mmol/L (3.5-5.1); TOTAL PROTEIN, SERUM 6.5 g/dL (6.4-8.2)
--- NOTE | 2021-02-26 10:00 | NUR ---
CONSUMED BREAKFAST 50%
[2021-02-26 13:00] VITALS: BP 112/58
--- NOTE | 2021-02-26 13:15 | NUR ---
CONSUMED LUNCH 50%
--- NOTE | 2021-02-26 18:00 | NUR ---
CONSUMED DINNER 75%
--- NOTE | 2021-02-26 18:42 | NUR ---
RN CLOSING NOTES PATIENT REMAINS IN ROOM, STABLE, NO ACUTE CHANGES DURING SHIFT, TOLERATING NC WELL, NO SOB OR DISTRESS, MEDICATIONS (CRUSHED) AND NUTRITION GIVEN, COMFORT NEEDS ATTENDED,TURN AND REPOSITIONED, SAFETY MEASURES IMPLEMENTED, WILL ENDORSE TO PM SHIFT RN FOR GWEN
--- NOTE | 2021-02-26 19:30 | NUR ---
ms rn opening note received patient in bed. a/ox2. on oxygen 2l/min via nasal cannula. respirations are even and unlabored, no s/s sob noted. no c/o pain at this time. in no apparent distress. iv access in lac#18 patent and saline locked, tony catheter is present, draining to gravity. bed is low and locked, hob elevated in semi fowlers, side rails up x2, gio light within reach. will continue to monitor throughout shift.
[2021-02-26 21:00] VITALS: BP 109/45
[2021-02-26] MEDS: LATANOPROST EYE DROP 0.005% 2.5 ML BOTTLE EACHEYE SCH (21:41)
[2021-02-27] MEDS: LACTULOSE 10 G/15 ML UDC (PYXIS) PO SCH ×4 (02:02→20:51)
[2021-02-27 05:00] VITALS: BP 108/42
[2021-02-27 06:14] LABS: BASOPHILS % (AUTO) 0.6 % (0.0-2.0); EOSINOPHILS % (AUTO) 5.4 % (0.0-6.0); HEMATOCRIT 26 % (39-51); LYMPHOCYTES # (AUTO) 1.8 /CMM (0.8-4.8); LYMPHOCYTES % (AUTO) 27.3 % (20.0-44.0); MEAN CORPUSCULAR HGB CONC 34 g/dl (31.0-36.0); MEAN CORPUSCULAR VOLUME 107 fL (80-96); MONOCYTES # (AUTO) 0.8 /CMM (0.1-1.30); MONOCYTES % (AUTO) 11.9 % (2.0-12.0); NEUTROPHILS # (AUTO) 3.7 /CMM (1.8-8.9); NEUTROPHILS % (AUTO) 54.8 % (43.0-81.0); PLATELET COUNT (AUTO) 101 /CMM (150-450); RED BLOOD CELL COUNT(AUTO) 2.45 MIL/uL (4.5-6.0); WHITE BLOOD COUNT (AUTO) 6.7 K/uL (4.3-11.0)
--- NOTE | 2021-02-27 06:17 | NUR ---
ms rn closing note patient resting in bed. a/ox2. remains on oxygen 2l/min via nasal cannula.no resp distress. no pain. no distress. iv access in lac#18, tony catheter maintained, output 600. bed is low and locked, hob elevated in semi fowlers, side rails up x2, gio light within reach. will endorse to oncoming shift
[2021-02-27] MEDS: LEVOTHYROXINE SODIUM 25 MCG TABLET PO SCH (06:37)
[2021-02-27 06:55] LABS: CALCIUM, SERUM 8.4 mg/dL (8.5-10.1); POTASSIUM 4.1 mmol/L (3.5-5.1)
[2021-02-27 07:06] LABS: CREATININE 0.9 mg/dL (0.6-1.3)
--- NOTE | 2021-02-27 07:30 | NUR ---
RN OPENING NOTE RECEIVED PT IN BED, LETHARGIC, AROUSABLE TO DEEP TOUCH, ON NC 2LPM, SPO2 OF 100% WITH NO SIGNS OF RESP DISTRESS OR SOB. PT GROIN, SACRAL AND PENILE REDNESS NOTED. PT RAC #18 SL, FLUSHED PATENT AND INTACT WITH NO SIGNS OF INFECTION OR INFILTRATION. PT HAS ALDRIDGE CATH DRAINING CLEAR YELLOW URINE TO GRAVITY. ALL PT SAFETY PRECAUTIONS IN PLACE, BED LOCKED AND IN LOWEST POSITION, PT HOB SEMIFOWLER'S, PT BED ALARM ON, CALL LIGHT WITHIN REACH. WILL CONT TO MONITOR
[2021-02-27 08:00] VITALS: BP 112/31
--- NOTE | 2021-02-27 08:30 | NUR ---
RN NOTE PER DR JONES, HOLD METOPROLOL D/T LOW HR AND BP
[2021-02-27] MEDS: CALCIUM CARB 600MG /VIT D 1 EACH TABLET PO SCH (08:31)
[2021-02-27] MEDS: ASPIRIN 81 MG TAB.CHEW PO SCH (08:31)
[2021-02-27] MEDS: ASCORBIC ACID 500 MG TABLET PO SCH ×2 (08:31→17:43)
[2021-02-27] MEDS: MULTIVITAMINS,THERAGRAN 1 UDTAB TABLET PO SCH (08:31)
[2021-02-27] MEDS: PROSOURCE / PROSTAT (PYXIS) 30 ML UDC PO SCH (08:31)
[2021-02-27] MEDS: ENOXAPARIN SODIUM 40 MG/0.4 ML DISP.SYRIN SQ SCH (08:37)
[2021-02-27] MEDS: METOPROLOL TARTRATE 25 MG TABLET PO SCH (09:00)
[2021-02-27] MEDS: CLOTRIMAZOLE 1% 15 GM TUBE TP SCH ×2 (09:46→17:44)
[2021-02-27 16:00] VITALS: BP 120/39
--- NOTE | 2021-02-27 19:00 | NUR ---
RN CLOSING NOTE PT IN STAB LE CONDITION WITH NO SIGN OF RESP DISTRESS OR SOB. PT MORE ALERT, A/Ox2 WITH PERIODS OF CONFUSION. PT ABLE TO SWALLOW WITH NO ISSUES, JUST MAKE SURE PT IS ALERT. NO OTHER CHANGES TO PT DURING SHIFT. ALL PT SAFETY PRECAUTIONS IN PLACE, WILL ENDORSE GWEN TO ONCOMING RN
--- NOTE | 2021-02-27 20:00 | NUR ---
RN NOTE RECEIVED PT IN BED A/A/O X2, ON 2L O2 VIA NC SATING 98%, HAS UNLABORED BREATHING.SAFETY MEASURES IN PLACE.
[2021-02-27 21:00] VITALS: BP 124/41
[2021-02-27] MEDS: LATANOPROST EYE DROP 0.005% 2.5 ML BOTTLE EACHEYE SCH (21:53)
--- NOTE | 2021-02-27 21:54 | NUR ---
xalatan non administered, medication is not available.
[2021-02-28] MEDS: LACTULOSE 10 G/15 ML UDC (PYXIS) PO SCH ×4 (02:05→20:11)
[2021-02-28 05:00] VITALS: BP 102/43
[2021-02-28 06:34] LABS: BASOPHILS % (AUTO) 0.5 % (0.0-2.0); EOSINOPHILS % (AUTO) 5.9 % (0.0-6.0); HEMATOCRIT 23 % (39-51); HEMOGLOBIN 8.1 g/dL (13.5-17.5); LYMPHOCYTES # (AUTO) 1.6 /CMM (0.8-4.8); LYMPHOCYTES % (AUTO) 28.7 % (20.0-44.0); MEAN CORPUSCULAR HGB CONC 35 g/dl (31.0-36.0); MEAN CORPUSCULAR VOLUME 106 fL (80-96); MONOCYTES # (AUTO) 0.7 /CMM (0.1-1.30); MONOCYTES % (AUTO) 12.5 % (2.0-12.0); NEUTROPHILS # (AUTO) 2.9 /CMM (1.8-8.9); NEUTROPHILS % (AUTO) 52.4 % (43.0-81.0); PLATELET COUNT (AUTO) 100 /CMM (150-450); WHITE BLOOD COUNT (AUTO) 5.5 K/uL (4.3-11.0)
[2021-02-28 07:09] LABS: CALCIUM, SERUM 7.7 mg/dL (8.5-10.1); CREATININE 0.9 mg/dL (0.6-1.3); POTASSIUM 3.7 mmol/L (3.5-5.1)
--- NOTE | 2021-02-28 07:26 | NUR ---
RN NOTE REPORT GIVEN TO ONCOMING SHIFT FOR GWEN.
--- NOTE | 2021-02-28 07:56 | NUR ---
MS RN OPENING NOTE PATIENT IS IN BED RESTING, PATIENT IS IN NO ACUTE DISTRESS. PATIENT IS ON 2L OXYGEN, TOLERATING WELL, NO SON NOTED. PATIENT HAS ALDRIDGE CATHETER. SAFETY PRECAUTIONS ARE ON, BED IS LOCKED IN THE LOWEST POSITION, SIDE RAILS ARE UP, CALL LIGHT WITHIN REACH. WILL CONTINUE TO MONITOR CLOSELY.
[2021-02-28] MEDS: ASPIRIN 81 MG TAB.CHEW PO SCH (08:56)
[2021-02-28] MEDS: ASCORBIC ACID 500 MG TABLET PO SCH ×2 (08:56→16:57)
[2021-02-28] MEDS: CALCIUM CARB 600MG /VIT D 1 EACH TABLET PO SCH (08:56)
[2021-02-28] MEDS: MULTIVITAMINS,THERAGRAN 1 UDTAB TABLET PO SCH (08:56)
[2021-02-28] MEDS: METOPROLOL TARTRATE 25 MG TABLET PO SCH (08:57)
[2021-02-28] MEDS: LEVOTHYROXINE SODIUM 25 MCG TABLET PO SCH (08:57)
[2021-02-28] MEDS: PROSOURCE / PROSTAT (PYXIS) 30 ML UDC PO SCH (08:59)
[2021-02-28] MEDS: CLOTRIMAZOLE 1% 15 GM TUBE TP SCH ×2 (09:00→16:57)
[2021-02-28] MEDS: RIFAXIMIN 550 MG TABLET PO SCH ×2 (09:02→16:57)
[2021-02-28] MEDS: ENOXAPARIN SODIUM 40 MG/0.4 ML DISP.SYRIN SQ SCH (09:08)
[2021-02-28 13:00] VITALS: BP 104/41
--- NOTE | 2021-02-28 18:57 | NUR ---
MS RN CLOSING NOTE PATIENT IS IN BED RESTING, PATIENT IS IN NO ACUTE DISTRESS. PATIENT IS ON 2L OXYGEN, TOLERATING WELL, NO SON NOTED. PATIENT HAS ALDRIDGE CATHETER. SAFETY PRECAUTIONS ARE ON, BED IS LOCKED IN THE LOWEST POSITION, SIDE RAILS ARE UP, CALL LIGHT WITHIN REACH. ENDORSE PATIENT TO DRY ICE MAKER NURSE FOR GWEN.
--- NOTE | 2021-02-28 19:00 | NUR ---
RN NOTE RECEIVED PATIENT IN BED, AO X 1-2, IN NO S/SX OF ACUTE DISTRESS AT THIS TIME, BREATHING IS EVEN AND UNLABORED, ON 2 L OF OXYGEN VIA NC, SATURATION AT 98%, HR IS 64. NOTED IV SITE AT RAC 18G, PATENT AND FLUISHING WELL, NO S/S OF INFECTION OR INFILTRATION. ALDRIDGE CATHETER CONNECTED TO URINE BAG IN PLACE, DRAINING TO A CLEAR YELLOW OUTPUT. SAFETY MEASURES IMPLEMENTED. PATIENT BED ALARM IS ON. HEAD OF BED ELEVATED. BED IS LOCKED, IN LOWEST POSITION AND SIDE RAILS UP. CALL LIGHT WITHIN REACH OF THE PATIENT. WILL CONTINUE TO MONITOR AND REASSESS FOR ANY CHANGES.
[2021-02-28 21:00] VITALS: BP 122/50
[2021-02-28] MEDS: IV D5W 1,000 ML IV PRN (21:19)
[2021-02-28] MEDS: LATANOPROST EYE DROP 0.005% 2.5 ML BOTTLE EACHEYE SCH (22:02)
[2021-03-01] MEDS: LACTULOSE 10 G/15 ML UDC (PYXIS) PO SCH ×4 (01:25→21:31)
[2021-03-01 05:00] VITALS: BP 110/51
[2021-03-01] MEDS: LEVOTHYROXINE SODIUM 25 MCG TABLET PO SCH (06:03)
[2021-03-01 06:35] LABS: BASOPHILS % (AUTO) 0.5 % (0.0-2.0); EOSINOPHILS % (AUTO) 6.1 % (0.0-6.0); HEMATOCRIT 22 % (39-51); HEMOGLOBIN 7.7 g/dL (13.5-17.5); LYMPHOCYTES # (AUTO) 1.5 /CMM (0.8-4.8); LYMPHOCYTES % (AUTO) 30.7 % (20.0-44.0); MEAN CORPUSCULAR HGB CONC 35 g/dl (31.0-36.0); MEAN CORPUSCULAR VOLUME 105 fL (80-96); MONOCYTES # (AUTO) 0.7 /CMM (0.1-1.30); MONOCYTES % (AUTO) 13.8 % (2.0-12.0); NEUTROPHILS # (AUTO) 2.3 /CMM (1.8-8.9); NEUTROPHILS % (AUTO) 48.9 % (43.0-81.0); PLATELET COUNT (AUTO) 93 /CMM (150-450); RED BLOOD CELL COUNT(AUTO) 2.09 MIL/uL (4.5-6.0); WHITE BLOOD COUNT (AUTO) 4.8 K/uL (4.3-11.0)
[2021-03-01 06:50] LABS: CALCIUM, SERUM 7.5 mg/dL (8.5-10.1); CREATININE 0.8 mg/dL (0.6-1.3); POTASSIUM 3.5 mmol/L (3.5-5.1)
--- NOTE | 2021-03-01 07:14 | NUR ---
RN NOTE PATIENT REMAINS STABLE, NO SIGN OF ACUTE DISTRESS, BREATHING IS EVEN AND UNLABORED, SATURATION 95% ON 2L VIA NC. D5W INFUSING AT 70 ML/HR AT RAC 18G. FALL AND SAFETY PRECAUTIONS IN PLACE. PATIENT BED IS LOCKED AND IN LOWEST POSITION. SIDE RAILS UP. CALL LIGHT WITHIN REACH OF THE PATIENT. WILL ENDORSE TO ROMAN HICKS FOR CONTINUATION OF CARE.
--- NOTE | 2021-03-01 07:55 | NUR ---
RN OPENING NOTE PATIENT AWAKE IN BED. CURRENTLY A/O X2 AND MAURITIAN SPEAKING. NO COMPLAINT OF PAIN OR NAUSEA. ON 2L NC WITH NO SOB OR RESPIRATORY DISTRESS PRESENT. NO EDEMA PRESENT. REDNESS PRESENT ON GROIN, SACRUM, AND PERINEUM. ON BEDREST. HL PRESENT ON R AC 18G. SAFETY MEASURES IN PLACE. SIDE RAILS RAISED. BED LOWERED. CALL LIGHT WITHIN REACH. WILL CONTINUE TO MONITOR.
[2021-03-01 08:00] VITALS: BP 122/53
[2021-03-01] MEDS: RIFAXIMIN 550 MG TABLET PO SCH ×2 (08:11→17:24)
[2021-03-01] MEDS: ASPIRIN 81 MG TAB.CHEW PO SCH (08:12)
[2021-03-01] MEDS: MULTIVITAMINS,THERAGRAN 1 UDTAB TABLET PO SCH (08:12)
[2021-03-01] MEDS: ASCORBIC ACID 500 MG TABLET PO SCH ×2 (08:12→17:24)
[2021-03-01] MEDS: CALCIUM CARB 600MG /VIT D 1 EACH TABLET PO SCH (08:12)
[2021-03-01] MEDS: CLOTRIMAZOLE 1% 15 GM TUBE TP SCH ×2 (08:12→17:24)
[2021-03-01] MEDS: METOPROLOL TARTRATE 25 MG TABLET PO SCH (08:18)
[2021-03-01] MEDS: PROSOURCE / PROSTAT (PYXIS) 30 ML UDC PO SCH (08:18)
[2021-03-01] MEDS: ENOXAPARIN SODIUM 40 MG/0.4 ML DISP.SYRIN SQ SCH (09:32)
[2021-03-01 13:00] VITALS: BP 110/52
[2021-03-01] MEDS: IV D5W 1,000 ML IV PRN (13:55)
--- NOTE | 2021-03-01 17:53 | NUR ---
RN CLOSING NOTE PATIENT AWAKE IN BED. CURRENTLY A/O X2 AND BANGLADESHI SPEAKING. NO COMPLAINT OF PAIN OR NAUSEA. ON 2L NC WITH NO SOB OR RESPIRATORY DISTRESS PRESENT. NO EDEMA PRESENT. REDNESS PRESENT ON GROIN, SACRUM, AND PERINEUM. ON BEDREST. HL PRESENT ON R AC 18G. SAFETY MEASURES IN PLACE. SIDE RAILS RAISED. BED LOWERED. CALL LIGHT WITHIN REACH. REPORT GIVEN TO NIGHT NURSE FOR GWEN.
--- NOTE | 2021-03-01 20:00 | NUR ---
ms rn notes RECEIVED PATIENT IN BED, AO X 1-2, NO S/SX OF ACUTE DISTRESS AT THIS TIME, BREATHING IS EVEN AND UNLABORED, ON 2 L OF OXYGEN VIA NC, SATURATION AT 97%, HR IS 61,V/S STABLE AFEBRILE1. NOTED IV SITE AT RAC 18G, PATENTNO S/S OF INFECTION OR INFILTRATION WITH D5W AT 70CC/HR INFUSING WELL .ALDRIDGE CATHETER CONNECTED TO URINE BAG IN PLACE, DRAINING TO A CLEAR YELLOW OUTPUT. SAFETY MEASURES IMPLEMENTED. PATIENT BED ALARM IS ON. HEAD OF BED ELEVATED. BED IS LOCKED, IN LOWEST POSITION AND SIDE RAILS UP. CALL LIGHT WITHIN REACH OF THE PATIENT. WILL CONTINUE TO MONITOR PTS REASSESS FOR ANY CHANGES.
[2021-03-01 21:00] VITALS: BP 113/50
[2021-03-01] MEDS: LATANOPROST EYE DROP 0.005% 2.5 ML BOTTLE EACHEYE SCH (23:25)
[2021-03-02] MEDS: LACTULOSE 10 G/15 ML UDC (PYXIS) PO SCH ×4 (02:24→20:43)
[2021-03-02 06:45] LABS: BASOPHILS % (AUTO) 0.7 % (0.0-2.0); EOSINOPHILS % (AUTO) 7.1 % (0.0-6.0); HEMATOCRIT 24 % (39-51); HEMOGLOBIN 8.2 g/dL (13.5-17.5); LYMPHOCYTES # (AUTO) 1.7 /CMM (0.8-4.8); LYMPHOCYTES % (AUTO) 31.6 % (20.0-44.0); MEAN CORPUSCULAR HGB CONC 35 g/dl (31.0-36.0); MEAN CORPUSCULAR VOLUME 105 fL (80-96); MONOCYTES # (AUTO) 0.7 /CMM (0.1-1.30); NEUTROPHILS # (AUTO) 2.6 /CMM (1.8-8.9); NEUTROPHILS % (AUTO) 47.6 % (43.0-81.0); PLATELET COUNT (AUTO) 91 /CMM (150-450); RED BLOOD CELL COUNT(AUTO) 2.25 MIL/uL (4.5-6.0); WHITE BLOOD COUNT (AUTO) 5.5 K/uL (4.3-11.0)
--- NOTE | 2021-03-02 06:55 | NUR ---
ms rn notes Pts in bed awake and responsive v//s stable will endorse to rn day shift for continuity of care.
[2021-03-02 07:04] LABS: CALCIUM, SERUM 7.5 mg/dL (8.5-10.1); CREATININE 0.8 mg/dL (0.6-1.3)
[2021-03-02 08:00] VITALS: BP 114/47
[2021-03-02] MEDS: ASCORBIC ACID 500 MG TABLET PO SCH ×2 (08:11→17:25)
[2021-03-02] MEDS: MULTIVITAMINS,THERAGRAN 1 UDTAB TABLET PO SCH (08:11)
[2021-03-02] MEDS: ASPIRIN 81 MG TAB.CHEW PO SCH (08:11)
[2021-03-02] MEDS: CALCIUM CARB 600MG /VIT D 1 EACH TABLET PO SCH (08:11)
[2021-03-02] MEDS: RIFAXIMIN 550 MG TABLET PO SCH ×2 (08:11→17:25)
[2021-03-02] MEDS: LEVOTHYROXINE SODIUM 25 MCG TABLET PO SCH (08:11)
[2021-03-02] MEDS: ENOXAPARIN SODIUM 40 MG/0.4 ML DISP.SYRIN SQ SCH (08:20)
[2021-03-02] MEDS: METOPROLOL TARTRATE 25 MG TABLET PO SCH (08:22)
[2021-03-02] MEDS: PROSOURCE / PROSTAT (PYXIS) 30 ML UDC PO SCH (08:23)
[2021-03-02] MEDS: CLOTRIMAZOLE 1% 15 GM TUBE TP SCH ×2 (08:29→17:25)
--- NOTE | 2021-03-02 08:30 | NUR ---
RN notes: Pt received alert awake oriented X 3. On 2 LPM O2 via NC, No breathing distress noted. Safety measures observed. IV site intact, running IV fluids as ordered. Encourage pt to use call light for assistance. Call light within reach.
[2021-03-02] MEDS: IV D5W 1,000 ML IV PRN (12:12)
[2021-03-02 16:00] VITALS: BP 110/46
--- NOTE | 2021-03-02 19:02 | NUR ---
RN Note: No Change of condition noted during shift. Endorsed to PM shift for continuity of care.
[2021-03-02 20:00] VITALS: BP 105/62
--- NOTE | 2021-03-02 20:05 | NUR ---
MS RN NOTES RECEIVED PATIENT IN BED, AO X 1-2, NO S/SX OF ACUTE DISTRESS AT THIS TIME, BREATHING IS EVEN AND UNLABORED, ON 2 L OF OXYGEN VIA NC, SATURATION AT 97%, HR IS 60,V/S STABLE AFEBRILE. INSERTED IV SITE G#20 ON RIGHT HAND X 1 ATTEMPT WITH GOOD BLOOD RETURN . CONTINUE ON WITH D5W AT 70CC/HR INFUSING WELL .ALDRIDGE CATHETER CONNECTED TO URINE BAG IN PLACE, DRAINING TO A CLEAR YELLOW OUTPUT. SAFETY MEASURES IMPLEMENTED. PATIENT BED ALARM IS ON. HEAD OF BED ELEVATED. BED IS LOCKED, IN LOWEST POSITION AND SIDE RAILS UP. CALL LIGHT WITHIN REACH OF THE PATIENT.ALL NEEDS ATTENDED TOO , DUE MEDS GIVEN ORDERED, WILL CONTINUE TO MONITOR PTS REASSESS FOR ANY CHANGES.
[2021-03-02] MEDS: LATANOPROST EYE DROP 0.005% 2.5 ML BOTTLE EACHEYE SCH (23:11)
[2021-03-03] MEDS: LACTULOSE 10 G/15 ML UDC (PYXIS) PO SCH ×2 (03:53→08:42)
[2021-03-03 04:00] VITALS: BP 107/60
--- NOTE | 2021-03-03 06:57 | NUR ---
ms rn notes Pts in bed awake and responsive v//s stable will endorse to rn day shift for continuity of care.
[2021-03-03] MEDS: LEVOTHYROXINE SODIUM 25 MCG TABLET PO SCH (07:32)
--- NOTE | 2021-03-03 07:45 | NUR ---
RN OPENING NOTE PATIENT IS IN BED WITH HOB AT SEMI FOWLERS POSITION. PATIENT IS AOX2. ON NC 2L WITH NO SIGNS OF LABORED BREATHING. ALDRIDGE CATHETER IS IN PLACE. RAC#18 IS PATENT AND INTACT. BED IS LOCKED IN THE LOWEST POSITION, 3 GUARD RAILS RAISED, CALL OCASIO WITHIN REACH, AND ALL HOSPITAL SAFETY PRECAUTIONS ARE BEING FOLLOWED. WILL CONTINUE TO MONITOR THROUGHOUT SHIFT.
[2021-03-03 07:56] LABS: BASOPHILS % (AUTO) 0.5 % (0.0-2.0); EOSINOPHILS % (AUTO) 5.9 % (0.0-6.0); HEMATOCRIT 24 % (39-51); HEMOGLOBIN 8.3 g/dL (13.5-17.5); LYMPHOCYTES # (AUTO) 1.6 /CMM (0.8-4.8); LYMPHOCYTES % (AUTO) 28.2 % (20.0-44.0); MEAN CORPUSCULAR HGB CONC 34 g/dl (31.0-36.0); MEAN CORPUSCULAR VOLUME 105 fL (80-96); MONOCYTES # (AUTO) 0.7 /CMM (0.1-1.30); NEUTROPHILS # (AUTO) 3.1 /CMM (1.8-8.9); NEUTROPHILS % (AUTO) 53.4 % (43.0-81.0); PLATELET COUNT (AUTO) 98 /CMM (150-450); RED BLOOD CELL COUNT(AUTO) 2.28 MIL/uL (4.5-6.0); WHITE BLOOD COUNT (AUTO) 5.7 K/uL (4.3-11.0)
[2021-03-03 08:00] VITALS: BP 94/50
[2021-03-03 08:10] LABS: CALCIUM, SERUM 7.9 mg/dL (8.5-10.1); CREATININE 0.8 mg/dL (0.6-1.3); POTASSIUM 3.8 mmol/L (3.5-5.1)
[2021-03-03] MEDS: ASCORBIC ACID 500 MG TABLET PO SCH ×2 (08:42→16:00)
[2021-03-03] MEDS: CALCIUM CARB 600MG /VIT D 1 EACH TABLET PO SCH (08:42)
[2021-03-03] MEDS: ASPIRIN 81 MG TAB.CHEW PO SCH (08:42)
[2021-03-03] MEDS: MULTIVITAMINS,THERAGRAN 1 UDTAB TABLET PO SCH (08:42)
[2021-03-03] MEDS: RIFAXIMIN 550 MG TABLET PO SCH ×2 (08:42→16:00)
[2021-03-03] MEDS: METOPROLOL TARTRATE 25 MG TABLET PO SCH (08:43)
[2021-03-03] MEDS: CLOTRIMAZOLE 1% 15 GM TUBE TP SCH ×2 (08:43→16:00)
[2021-03-03] MEDS: PROSOURCE / PROSTAT (PYXIS) 30 ML UDC PO SCH (08:47)
[2021-03-03] MEDS: ENOXAPARIN SODIUM 40 MG/0.4 ML DISP.SYRIN SQ SCH (09:07)
--- NOTE | 2021-03-03 09:10 | NUR ---
RN NOTE SPOKE WITH DR. JONES ABOUT PATIENT'S PLATELETS OF 98 AND 0900 DOSE OF LOVENOX. OKAY TO ADMINISTER.
[2021-03-03 16:00] VITALS: BP 114/56
--- NOTE | 2021-03-03 18:40 | NUR ---
RN CLOSING NOTE PATIENT IS IN BED WITH HOB AT SEMI FOWLERS POSITION. PATIENT IS AOX2. ON NC 2L WITH NO SIGNS OF LABORED BREATHING. ALDRIDGE CATHETER IS IN PLACE. RAC#18 IS PATENT AND INTACT. BED IS LOCKED IN THE LOWEST POSITION, 3 GUARD RAILS RAISED, CALL OCASIO WITHIN REACH, AND ALL HOSPITAL SAFETY PRECAUTIONS ARE BEING FOLLOWED. ALL DUE MEDS GIVEN AND PATIENT REMAINED STABLE THROUGHOUT SHIFT. WILL ENDORSE TO HAIRSPRING FABRICATION SUPERVISOR RN FOR GWEN.
--- NOTE | 2021-03-03 19:45 | NUR ---
RN OPENING NOTES RECEIVED PT IN BED, A/O X1 PT IS CONFUSED. REORIENTATED PT TO HOSPITAL, PT VERBALIZED UNDERSTANDING. ON M/S MONITORING. PT AT THIS TIME IS ON 2L OF O2 VIA NASAL CANNULA. NO S/S OF RESP DISTRESS OR SOB. UNLABORED AND EVEN. PT HAS ALDRIDGE MINIMAL HEMATURIA NOTED. WILL CONT TO MONITOR CLOSELY. SAFETY MEASURES IN PLACE. HOB ELEVATED. SIDE RAILS UP X3, BED LOCKED IN LOWEST POSITION. CALL LIGHT WITHIN REACH. WILL CONT TO MONITOR THROUGHOUT SHIFT.
[2021-03-03 20:00] VITALS: BP 112/50
[2021-03-03] MEDS: LATANOPROST EYE DROP 0.005% 2.5 ML BOTTLE EACHEYE SCH (22:17)
--- NOTE | 2021-03-04 00:30 | NUR ---
RN NOTE PT ATTEMPTING TO GET UP OUT OF BED MULTIPLE TIMES, PULLING ALDRIDGE, VERY CONFUSED. PT DOES NOT RESPOND TO FREQUENT REORIENTATION. LEFT SIDE SOFT WRIST RESTRAINT APPLIED, HX OF RIGHT SIDE WEAKNESS, BELLS PALSY. ORDER FOR ATIVAN 1MG IV Q6H PRN FOR AGITATED NOTED. WITH MD BOBBIN TRUCKER ANU.
[2021-03-04] MEDS ORDERED: LORAZEPAM INJ 2 MG/ML VIAL IV PRN (01:00)
--- NOTE | 2021-03-04 01:05 | NUR ---
RN NOTE PT AT THIS TIME QUIET, STILL AWAKE. REMAINS WITH LEFT WRIST RESTRAINT. NO AGITATED AT THIS TIME.
--- NOTE | 2021-03-04 03:20 | NUR ---
RN NOTE PT QUIET, RESTING, AROUSABLE. NO HEMATURIA PRESENT AT THIS TIME. URINE YELLOW. WILL CONT TO MONITOR
[2021-03-04 04:00] VITALS: BP 111/59
[2021-03-04 06:25] LABS: BASOPHILS % (AUTO) 0.3 % (0.0-2.0); EOSINOPHILS % (AUTO) 2.7 % (0.0-6.0); HEMATOCRIT 27 % (39-51); HEMOGLOBIN 9.2 g/dL (13.5-17.5); LYMPHOCYTES # (AUTO) 1.3 /CMM (0.8-4.8); MEAN CORPUSCULAR HGB CONC 35 g/dl (31.0-36.0); MEAN CORPUSCULAR VOLUME 106 fL (80-96); MONOCYTES # (AUTO) 0.9 /CMM (0.1-1.30); MONOCYTES % (AUTO) 12.8 % (2.0-12.0); NEUTROPHILS # (AUTO) 4.5 /CMM (1.8-8.9); NEUTROPHILS % (AUTO) 65.2 % (43.0-81.0); PLATELET COUNT (AUTO) 115 /CMM (150-450); RED BLOOD CELL COUNT(AUTO) 2.51 MIL/uL (4.5-6.0); WHITE BLOOD COUNT (AUTO) 6.9 K/uL (4.3-11.0)
--- NOTE | 2021-03-04 07:08 | NUR ---
RN CLOSING NOTES PT REMAINS IN BED. NO SIGNIFICANT CHANGES IN CONDITION. PT WAS COOPERATIVE. REMAINS NONVERBAL, ABLE TO ANSWER SIMPLE QUESTIONS. PT DENIES PAIN. PT REMAINS ON 2L OF OXYGEN VIA NASAL CANNULA NO S/S OF RESP DISTRESS OR SOB. BREATHING EVEN AND UNLABORED. REMAINS WITH LEFT SOFT WRIST RESTRAINT. ALL NEEDS ATTENDED. ALL DUE MEDICATIONS GIVEN. NO DISTRESS NOTED. SAFETY MEASURES IN PLACE. HOB ELEVATED. SIDE RAILS X3, BED LOCKED IN LOWEST POSITION WITH BED ALARM ON. CALL LIGHT WITHIN REACH. WILL ENDORSE TO DAY SHIFT NURSE FOR CONTINUATION OF CARE.
[2021-03-04 07:39] LABS: CALCIUM, SERUM 7.9 mg/dL (8.5-10.1); CREATININE 0.8 mg/dL (0.6-1.3); POTASSIUM 4.5 mmol/L (3.5-5.1)
--- NOTE | 2021-03-04 07:53 | NUR ---
RN NOTES RECEIVED PATIENT IN BED. NO SIGNIFICANT CHANGES IN CONDITION COMPARED TO REPORT AND LAST NIGHT INFO, PT IS COOPERATIVE AND ABLE TO MAKE NEEDS KNOWN, SIMPLE TERMS ABLE TO ANSWER SIMPLE QUESTIONS. PT DENIES PAIN. PT REMAINS ON 2L OF OXYGEN VIA NASAL CANNULA NO S/S OF RESP DISTRESS AND NO SOB. BREATHING EVEN AND UNLABORED. REMAINS WITH LEFT SOFT WRIST RESTRAINT INTACT CHECKED SKIN IT IS INTACT NO S/S OF ANY IRRITATION NOTED, . ALL NEEDS ATTENDED. NO DISTRESS NOTED. SAFETY MEASURES IN PLACE. HOB ELEVATED. SIDE RAILS X3, BED LOCKED IN LOWEST POSITION WITH BED ALARM ON. CALL LIGHT WITHIN REACH. WILL CONTINUE TO MONITOR
[2021-03-04 08:00] VITALS: BP 153/63
[2021-03-04] MEDS ORDERED: RIFA550T PO (08:28)
[2021-03-04] MEDS: ASPIRIN 81 MG TAB.CHEW PO SCH (09:05)
[2021-03-04] MEDS: ENOXAPARIN SODIUM 40 MG/0.4 ML DISP.SYRIN SQ SCH (09:07)
[2021-03-04] MEDS: CALCIUM CARB 600MG /VIT D 1 EACH TABLET PO SCH (09:07)
[2021-03-04 09:08] VITALS: BP 153/63
[2021-03-04] MEDS: METOPROLOL TARTRATE 25 MG TABLET PO SCH (09:08)
[2021-03-04] MEDS: ASCORBIC ACID 500 MG TABLET PO SCH (09:08)
[2021-03-04] MEDS: LEVOTHYROXINE SODIUM 25 MCG TABLET PO SCH (09:12)
[2021-03-04] MEDS: MULTIVITAMINS,THERAGRAN 1 UDTAB TABLET PO SCH (09:12)
[2021-03-04] MEDS: RIFAXIMIN 550 MG TABLET PO SCH (09:12)
[2021-03-04] MEDS: PROSOURCE / PROSTAT (PYXIS) 30 ML UDC PO SCH (09:12)
[2021-03-04] MEDS: CLOTRIMAZOLE 1% 15 GM TUBE TP SCH (10:00)
--- NOTE | 2021-03-04 10:20 | NUR ---
RN NOTES NOTED HEMATURIA IN CATHETAR MD JONES MADE AWARE NO NEW ORDERS AT THIS TIME TO MONITOR AND ASSESS.
--- NOTE | 2021-03-04 16:11 | NUR ---
RN NOTES PATIENT DISCHARGED TO [facility] ACCOMPANIED BY TWO bilingual nanny REPORT GIVEN TO SHYAM AND ASKED ABOUT VACCINATIONS SHE STATED SHE WILL CALL US BACK WITH THAT INFO, SAFE TRANSFER FROM [facility] TO [facility], ALL WITHIN BASELINE NORMAL RANGE, NO DISTRESS AND NO SHORTNESS OF BREATH NOTED AT THE TIME OF TRANSFER OR OTHER, D/C AND EDUCATIONAL INSTRUCTIONS GIVEN TO PATIENT, SKIN INTACT, F/C INTACT AND DRAINING PROPERLY, F/C EMPTIED AND DRAINED BEFORE D/C.
== END 2021-03-04 16:16 | DRG 432 ==
LOC: ER 19:16 → TELE-TD 21:15 → TELE1 02-22 08:29 → TELE-TD 02-22 09:40 → TELE1 02-22 10:19 → TELE-TD 02-22 11:04 → TELE1 02-23 08:06 → MEDSG1 02-24 08:23
PROVIDERS: ADMIT Nurse Practitioner Acute Care; ATTEND Family Medicine
DX: K74.60 Unspecified cirrhosis of liver (principal); K72.00 Acute and subacute hepatic failure without coma; I21.A1 Myocardial infarction type 2; N17.0 Acute kidney failure with tubular necrosis; E43 Unspecified severe protein-calorie malnutrition; G93.41 Metabolic encephalopathy; D68.59 Other primary thrombophilia; D61.818 Other pancytopenia; E87.0 Hyperosmolality and hypernatremia; I69.359 Hemiplegia and hemiparesis following cerebral infarction affecting unspecified side; N18.9 Chronic kidney disease, unspecified; E03.9 Hypothyroidism, unspecified; I13.10 Hypertensive heart and chronic kidney disease without heart failure, with stage 1 through stage 4 chronic kidney disease, or unspecified chronic kidney disease; K21.9 Gastro-esophageal reflux disease without esophagitis; F41.9 Anxiety disorder, unspecified; F20.9 Schizophrenia, unspecified; D63.8 Anemia in other chronic diseases classified elsewhere; F32.9 Major depressive disorder, single episode, unspecified; Z79.890 Hormone replacement therapy; H40.9 Unspecified glaucoma; Z79.82 Long term (current) use of aspirin; F03.90 Unspecified dementia, unspecified severity, without behavioral disturbance, psychotic disturbance, mood disturbance, and anxiety; E86.1 Hypovolemia; Z96.641 Presence of right artificial hip joint; Z74.09 Other reduced mobility; Z79.899 Other long term (current) drug therapy; R00.1 Bradycardia, unspecified; T50.905A Adverse effect of unspecified drugs, medicaments and biological substances, initial encounter; Y92.9 Unspecified place or not applicable; I67.2 Cerebral atherosclerosis
CPT/HCPCS: 36415; 36600; 70450-TC; 71045-TC; 80048-TC; 80053-TC; 80061-TC; 80076-TC; 81001; 82140-TC; 82570-TC; 82728-TC; 83540-TC; 83605-TC; 83735-TC; 84100-TC; 84155-TC; 84300-TC; 84439-TC; 84443-TC; 84484-TC; 85025-TC; 85730-TC; 87040-TC; 87081-TC; 87086-TC; 92526; 92611-TC; 93307-TC; 97112-TC; 97530-TC; C9803; G0378; J1650; J7030; J7050; J7070; U0003